=== PATIENT | male | born 1935 | race Caucasian/White ===

== ENCOUNTER 2019-12-23 09:03 | Inpatient (IN) ==
[2019-12-23] MEDS ORDERED: NITROGLYCERIN 0.4 MG TAB.SUBL SL PRN ×2 (09:23→12:15)
[2019-12-23] MEDS ORDERED: DILTIAZEM 25 MG/5 ML VIAL IV ONE (09:23)
--- NOTE | 2019-12-23 09:28 | Emergency Department Note ---
Chest Pain HPI General Chief Complaint: Chest Pain Stated Complaint: chest pain/cough Time Seen by Provider: 12/23/19 09:18 Source: patient and RN notes reviewed Mode of arrival: EMS Limitations: no limitations History of Present Illness HPI Narrative: Narrative: This patient has with mild cough and shortness of breath since Tuesday and this morning at 730 developed chest pain and rapid heartbeat. He is in rapid atrial fib and has never been in atrial flutter before that he is aware of. He does have a history of coronary disease and has had bypass grafting in the past. Chest pain is anterior and described as a heaviness. Cough is nonproductive. complaint: chest pain Onset (ago): hour(s) Duration: constant Onset: during rest Pain Location: substernal Severity: moderate Quality: tightness Pain Radiation: none Improves with: nothing Worsens with: nothing Associated symptoms: Reports palpitations Treatments prior to arrival chest pain: aspirin Related Data Home Medications Medication Instructions Recorded Confirmed aspirin [Lite Coat Aspirin] 325 mg PO DAILY 03/05/15 12/05/19 atorvastatin 20 mg PO HS 03/05/15 12/05/19 lisinopril 5 mg PO DAILY 03/05/15 12/05/19 metformin 1,000 mg PO BIDCC 03/05/15 12/05/19 metoprolol tartrate 50 mg PO BID 03/05/15 12/05/19 insulin aspart U-100 100 unit/mL See Rx Instructions SUB-Q .COMPLEX 06/28/19 12/05/19 subcutaneous cartridge simvastatin 10 mg tablet See Rx Instructions PO .COMPLEX 06/28/19 12/05/19 insulin glargine [Lantus Solostar 8 unit SUBCUT QAM 12/23/19 12/23/19 U-100 Insulin] Allergies Allergy/AdvReac Type Severity Reaction Status Date / Time No Known Drug Allergies Allergy Verified 12/23/19 12:01 Review of Systems ROS ROS Narrative: Narrative: All systems ED: reviewed and negative except as stated. PFSH Narrative Patient History Narrative: Narrative: Medical/Surgical/Family History All Active Problems (Updated 12/23/19 @ 12:12 by Lev Harvey MD) Atrial fibrillation with rapid ventricular response (Acute) COVID-19 (Acute) Radiculopathy, lumbosacral region (Chronic) Lumbar spinal stenosis (Chronic) Radiculopathy, lumbar region (Chronic) Spinal stenosis, lumbar region with neurogenic claudication (Chronic) Low back pain (Chronic) Hip fracture, right (Acute) Heart disease (Acute) Diabetes (Acute) Closed right hip fracture (Acute) Medical History (Updated 12/23/19 @ 12:12 by Lev Harvey MD) Closed right hip fracture (Acute) Diabetes (Acute) Heart disease (Acute) Hip fracture, right (Acute) Afebrile OOB with assist. Dressing dry. HCT 28.9 Continue PT Low back pain (Chronic) Lumbar spinal stenosis (Chronic) Radiculopathy, lumbar region (Chronic) Radiculopathy, lumbosacral region (Chronic) Spinal stenosis, lumbar region with neurogenic claudication (Chronic) Surgical History (Updated 06/28/19 @ 12:51 by Marilu Le) History of surgery (Chronic) LESI #2 L4-5 w/o sed 01/18/2019 LESI #1 L4-5 w/o sed 11/09/18 MILD L4/5 w/ sed 09/14/2018 LESI #2 L5-S1 w/o sed 05/18/2018 LESI #1 Rt L5-S1 w/o sed 02/23/2018 LESI #2 L4-5 w/o sed 07/25/17 LESI #1 L5-S1 w/o sed 04/18/17 LESI #2 L5-S1 w/o sed 12/29/2016 LESI #1 L5-S1 w/o sed 10/12/2016 Family History (Updated 11/09/19 @ 09:21 by Amada Jimenez) Other No pertinent family history Social History Smoking Status: Former smoker Exam Narrative Narrative: Narrative: General Limitations: no limitations Head Head: Present atraumatic, normocephalic and normal inspection Eye Eye: Present normal appearance and EOMI; Absent scleral icterus and conjunctival injection ENT ENT: Present normal exam, normal oropharynx and mucous membranes moist Neck Neck: Present normal inspection and full ROM Chest Chest: Present normal inspection and symmetric chest wall rise; Absent tendernes s Respiratory Respiratory: Present normal lung sounds bilaterally; Absent respiratory distress, rales/crackles and wheezes Cardiovascular Cardiovascular: Present tachycardia, irregular rhythm and normal heart sounds Adbominal Abdominal: Present soft; Absent distention and tenderness Extremities Extremities: Present normal inspection and full ROM; Absent pedal edema and pretibial edema Neurological Neurological: Present alert Psychiatric Psychiatric: Present normal affect Skin Skin: Present warm (WNL) and dry; Absent diaphoresis Course Vital Signs Vital signs: Vital Signs Pulse Rate 166 H 12/23/19 09:07 Respiratory Rate 16 12/23/19 09:07 Blood Pressure 150/122 12/23/19 09:07 Temperature 96.8 F L 12/23/19 09:15 Pulse Rate 103 H 12/23/19 11:44 Respiratory Rate 29 H 12/23/19 11:44 Blood Pressure 105/68 12/23/19 11:41 Pulse Oximetry (%) 97 12/23/19 11:44 MDM MDM Narrative Medical decision making narrative: Narrative: Patient will be admitted to the hospital by Dr. Childress. We did start diltiazem and got rate under control but around. Lab Data Lab results narrative: Lab work was unremarkable except that he was Covid positive. Result diagrams: 12/23/19 09:27 12/23/19 09:27 Labs: Lab Results 12/23/19 12/23/19 12/23/19 Range/Units 09:27 09:27 09:27 WBC 9.6 (4.5-11.0) K/mcL RBC 4.35 L (4.50-5.90) M/mcL Hgb 13.5 (13.5-16.5) g/dL Hct 40.2 L (41.0-55.0) % MCV 92.4 (80.0-100.0) fL MCH 31.0 (26.0-34.0) pg MCHC 33.6 (31.0-36.0) g/dL RDW 11.7 (11.5-14.5) % Plt Count 189 (140-440) K/mcL MPV 9.4 (7.4-10.4) fL Neut % (Auto) 64.0 (38.0-78.0) % Lymph % (Auto) 24.1 (15.0-49.0) % [place] % (Auto) 11.5 (1.0-12.0) % Eos % (Auto) 0.1 (0.0-7.0) % Baso % (Auto) 0.3 (0.0-2.0) % Lymph # (Auto) 2.31 (1.50-4.80) K/mcL [place] # (Auto) 1.10 H (0.10-0.90) K/mcL Eos # (Auto) 0.01 (0.00-0.70) K/mcL Baso # (Auto) 0.03 (0.00-0.20) K/mcL Absolute Neutrophils 6.13 (1.80-8.00) K/mcL Sodium 127 L (133-145) mmol/L Potassium 3.9 (3.3-5.1) mmol/L Chloride 92 L (96-108) mmol/L Carbon Dioxide 18 L (22-30) mmol/L Anion Gap 17.0 H (8.0-16.0) BUN 18 (8-23) mg/dL Creatinine 1.2 (0.7-1.2) mg/dL GFR Calculation 56 Glucose 280 H (70-105) mg/dL Calcium 10.1 (8.6-10.4) mg/dL Total Bilirubin 1.2 H (0.1-1.0) mg/dL AST 19 (<40) U/L ALT 12 (<40) U/L Alkaline Phosphatase 83 (39-117) U/L Troponin T < 0.01 (<0.03) ng/mL NT-Pro-B Natriuret Pep 459.8 H (<450.0) pg/mL Total Protein 8.0 (5.9-8.4) gm/dL Albumin 4.2 (3.2-5.2) gm/dL Globulin 3.8 H (2.2-3.7) gm/dL Albumin/Globulin Ratio 1.1 (1.0-2.3) Urine Color Urine Appearance (Clear) Urine pH (5.0-9.0) Ur Specific [place] (1.000-1.035) Urine Protein (Negative) mg/dL Urine Glucose (UA) (Negative) mg/dL Urine Ketones (Negative) mg/dL Urine Occult Blood (Negative) mg/dL Urine Nitrate (Negative) Urine Bilirubin (Negative) mg/dL Urine Urobilinogen mg/dL Ur Leukocyte Esterase (Negative) /ug Urine RBC (0-1) /hpf Urine WBC (0-4) /hpf Ur Squamous Epith Cells (0-4) /hpf Ur Transition Epith Cell (0-2) /hpf Urine Bacteria (0) /hpf Hyaline Casts (0-2) /lph Urine Mucus (None) /hpf Ur Culture Indicated? SARS-CoV-2 (PCR) (Negative) 12/23/19 12/23/19 Range/Units 09:51 11:03 WBC (4.5-11.0) K/mcL RBC (4.50-5.90) M/mcL Hgb (13.5-16.5) g/dL Hct (41.0-55.0) % MCV (80.0-100.0) fL MCH (26.0-34.0) pg MCHC (31.0-36.0) g/dL RDW (11.5-14.5) % Plt Count (140-440) K/mcL MPV (7.4-10.4) fL Neut % (Auto) (38.0-78.0) % Lymph % (Auto) (15.0-49.0) % [place] % (Auto) (1.0-12.0) % Eos % (Auto) (0.0-7.0) % Baso % (Auto) (0.0-2.0) % Lymph # (Auto) (1.50-4.80) K/mcL [place] # (Auto) (0.10-0.90) K/mcL Eos # (Auto) (0.00-0.70) K/mcL Baso # (Auto) (0.00-0.20) K/mcL Absolute Neutrophils (1.80-8.00) K/mcL Sodium (133-145) mmol/L Potassium (3.3-5.1) mmol/L Chloride (96-108) mmol/L Carbon Dioxide (22-30) mmol/L Anion Gap (8.0-16.0) BUN (8-23) mg/dL Creatinine (0.7-1.2) mg/dL GFR Calculation Glucose (70-105) mg/dL Calcium (8.6-10.4) mg/dL Total Bilirubin (0.1-1.0) mg/dL AST (<40) U/L ALT (<40) U/L Alkaline Phosphatase (39-117) U/L Troponin T (<0.03) ng/mL NT-Pro-B Natriuret Pep (<450.0) pg/mL Total Protein (5.9-8.4) gm/dL Albumin (3.2-5.2) gm/dL Globulin (2.2-3.7) gm/dL Albumin/Globulin Ratio (1.0-2.3) Urine Color Yellow Urine Appearance Clear (Clear) Urine pH 5.0 (5.0-9.0) Ur Specific [place] 1.014 (1.000-1.035) Urine Protein 30 A (Negative) mg/dL Urine Glucose (UA) 50 A (Negative) mg/dL Urine Ketones Negative (Negative) mg/dL Urine Occult Blood Negative (Negative) mg/dL Urine Nitrate Negative (Negative) Urine Bilirubin Negative (Negative) mg/dL Urine Urobilinogen 2.0 A mg/dL Ur Leukocyte Esterase Negative (Negative) /ug Urine RBC 2 H (0-1) /hpf Urine WBC 3 (0-4) /hpf Ur Squamous Epith Cells 1 (0-4) /hpf Ur Transition Epith Cell < 1 (0-2) /hpf Urine Bacteria None (0) /hpf Hyaline Casts 178 H (0-2) /lph Urine Mucus Many A (None) /hpf Ur Culture Indicated? No SARS-CoV-2 (PCR) Positive A (Negative) Radiology Data Radiology results reviewed: Yes I reviewed the patient's radiology results. Radiology results narrative: Chest x-ray showed COPD Discharge Plan Patient/Caregiver Discharge Instructions Pt seen by MUSCULOSKELETAL PHYSIOTHERAPIST/PA only: No Clinical Impression: Atrial fibrillation with rapid ventricular response, COVID-19 Patient Disposition: Xfer As Inpt ([facility]) Follow up with: Ghada Ivory MD [Primary Care Provider] - Prescriptions: No Action simvastatin 10 mg tablet PO DAILY RF: 0 insulin aspart U-100 100 unit/mL cartridge See Rx Instructions SUB-Q .COMPLEX RF: 0 metformin 500 MG tablet 1,000 mg PO BIDCC RF: 0 atorvastatin 20 MG tablet 20 mg PO HS RF: 0 aspirin [Lite Coat Aspirin] 325 MG tablet 325 mg PO DAILY RF: 0 metoprolol tartrate 50 MG tablet 25 mg PO BID RF: 0 lisinopril 5 MG tablet 5 mg PO DAILY RF: 0 Lantus Solostar U-100 Insulin 100 unit/mL (3 mL) insulin pen 8 unit SUBCUT QAM RF: 0
[2019-12-23] MEDS ORDERED: DILTIAZEM 125 MG in DEXTROSE 5% IN WATER 100 ML IV SCH (09:30)
--- NOTE | 2019-12-23 10:00 | XRay Report ---
HISTORY: Shortness of breath, chest pain and cough FINDINGS: Patient has COPD. The lungs are hyperinflated. There are prominent increased interstitial lung markings. This COPD has become worse since 07/31/07. The prominent lung markings are probably fibrosis. However, superimposed active interstitial inflammatory process is possible. There is no consolidating infiltrate. Prominent symmetric nipple shadows are present in both lung bases. The heart size is normal and there has been a prior sternotomy and coronary bypass surgery. IMPRESSION: COPD Interpreted and Authenticated by: Deny Ford 12/23/19
[2019-12-23 10:17] LABS: Basophils # (Auto) 0.03 K/mcL (0.00-0.20); Basophils % (Auto) 0.3 % (0.0-2.0); Eosinophils # (Auto) 0.01 K/mcL (0.00-0.70); Eosinophils % (Auto) 0.1 % (0.0-7.0); Hematocrit 40.2 % (41.0-55.0); Hemoglobin 13.5 g/dL (13.5-16.5); Lymphocytes # (Auto) 2.31 K/mcL (1.50-4.80); Lymphocytes % (Auto) 24.1 % (15.0-49.0); Mean Cell Volume 92.4 fL (80.0-100.0); Mean Corpuscular HGB Conc 33.6 g/dL (31.0-36.0); Mean Platelet Volume 9.4 fL (7.4-10.4); Monocytes % (Auto) 11.5 % (1.0-12.0); Platelet Count 189 K/mcL (140-440); RBC 4.35 M/mcL (4.50-5.90); Red Cell Distribution Width 11.7 % (11.5-14.5); WBC 9.6 K/mcL (4.5-11.0)
[2019-12-23] MEDS ORDERED: LACTATED RINGERS 1,000 ML IV ONE (10:38)
[2019-12-23 10:43] LABS: ALT/SGPT 12 U/L (<40); AST/SGOT 19 U/L (<40); Albumin 4.2 gm/dL (3.2-5.2); Albumin/Globulin Ratio 1.1 (1.0-2.3); Alkaline Phosphatase 83 U/L (39-117); Bilirubin,Total 1.2 mg/dL (0.1-1.0); Blood Urea Nitrogen 18 mg/dL (8-23); Calcium 10.1 mg/dL (8.6-10.4); Carbon Dioxide 18 mmol/L (22-30); Chloride 92 mmol/L (96-108); Globulin 3.8 gm/dL (2.2-3.7); Glomerular Filtration Rate 56; Glucose 280 mg/dL (70-105)
[2019-12-23 10:44] LABS: proBNP 459.8 pg/mL (<450.0)
--- NOTE | 2019-12-23 11:18 | Internal Med History&Physical ---
HPI History of Present Illness Patient information: Note initiated : 12/23/19 at 11:13 am Service Date, if different from initiated Date: [] Patient: Chemo Shields 84 y/o M admitted on for chest pain/cough. Chief Complaint: [] History of present illness: Mr. Shields is a 84 year old M pResents to the ED with palpitations and chest discomfort. Patient is Tuesday*developing a cough with mild shortness of breath and this morning had palpitation described as rapid and irregular and had some chest discomfort with it. The ED was found to have A. fib RVR and given diltiazem bolus with improvement. Chest discomfort resolved. Troponin unremarkable. Covid test was positive. On room air doing well. Found to be mildly hyponatremic. Some mild volume depletion likely. Review of Systems: Pertinent positives as above. Denies headache/fever/chills/nausea/vomiting/ abdominal pain/diarrhea. Many 10 point review of system reviewed negative PFSH PFSH All Active Problems (Updated 06/28/19 @ 12:51 by Marilu Le) Radiculopathy, lumbosacral region (Chronic) Lumbar spinal stenosis (Chronic) Radiculopathy, lumbar region (Chronic) Spinal stenosis, lumbar region with neurogenic claudication (Chronic) Low back pain (Chronic) Hip fracture, right (Acute) Heart disease (Acute) Diabetes (Acute) Closed right hip fracture (Acute) Medical History (Updated 06/28/19 @ 12:51 by Marilu Le) Closed right hip fracture (Acute) Diabetes (Acute) Heart disease (Acute) Hip fracture, right (Acute) Afebrile OOB with assist. Dressing dry. HCT 28.9 Continue PT Low back pain (Chronic) Lumbar spinal stenosis (Chronic) Radiculopathy, lumbar region (Chronic) Radiculopathy, lumbosacral region (Chronic) Spinal stenosis, lumbar region with neurogenic claudication (Chronic) Surgical History (Updated 06/28/19 @ 12:51 by Marilu Le) History of surgery (Chronic) LESI #2 L4-5 w/o sed 01/18/2019 LESI #1 L4-5 w/o sed 11/09/18 MILD L4/5 w/ sed 09/14/2018 LESI #2 L5-S1 w/o sed 05/18/2018 LESI #1 Rt L5-S1 w/o sed 02/23/2018 LESI #2 L4-5 w/o sed 07/25/17 LESI #1 L5-S1 w/o sed 04/18/17 LESI #2 L5-S1 w/o sed 12/29/2016 LESI #1 L5-S1 w/o sed 10/12/2016 Family History (Updated 11/09/19 @ 09:21 by Amada Jimenez) Other No pertinent family history Social History (Updated 12/23/19 @ 11:15 by Anuj Childress DO) smoking status: Former smoker additional history: Family: Mother was healthy Father had heart failure Social history: Patient quit smoking long time ago denies alcohol use lives with a roommate MEDS/ALLERGIES Home Medications and Allergies Home Medications Medication Instructions Recorded Confirmed Type aspirin [Lite Coat Aspirin] 325 mg PO DAILY 03/05/15 12/05/19 History atorvastatin 20 mg PO HS 03/05/15 12/05/19 History lisinopril 5 mg PO DAILY 03/05/15 12/05/19 History metformin 1,000 mg PO BIDCC 03/05/15 12/05/19 History metoprolol tartrate 50 mg PO BID 03/05/15 12/05/19 History insulin aspart U-100 100 unit/mL See Rx Instructions SUB-Q .COMPLEX 06/28/19 12/05/19 History subcutaneous cartridge simvastatin 10 mg tablet See Rx Instructions PO .COMPLEX 06/28/19 12/05/19 History Allergies Allergy/AdvReac Type Severity Reaction Status Date / Time No Known Drug Allergies Allergy Verified 12/05/19 15:46 EXAM Constitutional Vitals: Temp Pulse Resp BP Pulse Ox 96.8 F L 101 H 24 H 87/54 96 12/23/19 09:15 12/23/19 10:37 12/23/19 10:37 12/23/19 10:36 12/23/19 10:37 Exam: General: Alert, Awake, No acute Distress Eyes/N/T: EOMI, PERRL, Head/Neck: neck supple, normocephalic atraumatic CV: irreg irreg, No murmurs, normal s1/s2 Pulm: Clear b/l, no wheezing/rhonchi/rales Abd: soft, nontender, +BS x4 Ext: no clubbing/cyanosis/edema Neuro: Alert, no focal deficits, moves all extremities, CN 2-12 grossly intact, symmetrical strength b/l upper/lower, sensations intact b/l upper/lower Skin: warm/dry DATA Data Completed and Pending Labs: Labs from last 24 hours 12/23/19 12/23/19 12/23/19 11:03 09:51 09:27 WBC RBC Hgb Hct MCV MCH MCHC RDW Plt Count MPV Neut % (Auto) Lymph % (Auto) [place] % (Auto) Eos % (Auto) Baso % (Auto) Lymph # (Auto) [place] # (Auto) Eos # (Auto) Baso # (Auto) Absolute Neutrophils Sodium Potassium Chloride Carbon Dioxide Anion Gap BUN Creatinine GFR Calculation Glucose Calcium Total Bilirubin AST ALT Alkaline Phosphatase Troponin T < 0.01 NT-Pro-B Natriuret Pep Total Protein Albumin Globulin Albumin/Globulin Ratio Urine Color Pending Urine Appearance Pending Urine pH Pending Ur Specific [place] Pending Urine Protein Pending Urine Glucose (UA) Pending Urine Ketones Pending Urine Occult Blood Pending Urine Nitrate Pending Urine Bilirubin Pending Urine Urobilinogen Pending Ur Leukocyte Esterase Pending SARS-CoV-2 (PCR) Positive A 12/23/19 12/23/19 09:27 09:27 WBC 9.6 RBC 4.35 L Hgb 13.5 Hct 40.2 L MCV 92.4 MCH 31.0 MCHC 33.6 RDW 11.7 Plt Count 189 MPV 9.4 Neut % (Auto) 64.0 Lymph % (Auto) 24.1 [place] % (Auto) 11.5 Eos % (Auto) 0.1 Baso % (Auto) 0.3 Lymph # (Auto) 2.31 [place] # (Auto) 1.10 H Eos # (Auto) 0.01 Baso # (Auto) 0.03 Absolute Neutrophils 6.13 Sodium 127 L Potassium 3.9 Chloride 92 L Carbon Dioxide 18 L Anion Gap 17.0 H BUN 18 Creatinine 1.2 GFR Calculation 56 Glucose 280 H Calcium 10.1 Total Bilirubin 1.2 H AST 19 ALT 12 Alkaline Phosphatase 83 Troponin T NT-Pro-B Natriuret Pep 459.8 H Total Protein 8.0 Albumin 4.2 Globulin 3.8 H Albumin/Globulin Ratio 1.1 Urine Color Urine Appearance Urine pH Ur Specific [place] Urine Protein Urine Glucose (UA) Urine Ketones Urine Occult Blood Urine Nitrate Urine Bilirubin Urine Urobilinogen Ur Leukocyte Esterase SARS-CoV-2 (PCR) A/P Narrative A/P Narrative: A: *A. fib RVR: -trop neg *Covid positive: -no O2 needs at this time -cxr unremarkable *Hyponatremia: *volume depletion: *CAD with history of CABG: *HTN/HLD: *DM: P: -echo, tsh/mg -cont BB -discuss anticoagulation -f/u chemistry/sodium after volume repletion -cont ASA/Statin -basal and SSI -IS, monitor O2 -ppx: Lovenox Code Time 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
[2019-12-23 11:53] LABS: Appearance,Urine CLEAR (Clear); Bilirubin,Urine Negative (Negative); Color,Urine YELLOW; Culture Indicated,Urine No; Glucose,Urine (UA) 50 mg/dL (Negative); Ketones,Urine Negative (Negative); Leukocyte Esterase,Urine Negative /ug (Negative); Mucus,Urine MANY /hpf; Nitrate,Urine Negative (Negative); Protein,Urine 30 mg/dL (Negative); Specific Gravity,Urine 1.014 (1.000-1.035); Urine Blood Negative (Negative); Urine Hyaline Cast 178 /lph (0-2); Urine RBC 2 /hpf (0-1); Urine Squamous Epithelial Cell 1 /hpf (0-4); Urine Transitional Epi Cells < 1 /hpf (0-2); Urine WBC 3 /hpf (0-4)
[2019-12-23] MEDS ORDERED: IPRATROPIUM/ALBUTEROL 3 ML AMPUL.NEB NEB PRN (12:15)
[2019-12-23] MEDS ORDERED: SENNOSIDES 1 TABLET PO PRN (12:15)
[2019-12-23] MEDS ORDERED: POTASSIUM CHLORIDE 20 MEQ TABLET PO PRN ×2 (12:15)
[2019-12-23] MEDS ORDERED: ONDANSETRON 4 MG/2 ML VIAL IV PRN (12:15)
[2019-12-23] MEDS ORDERED: DEXTROSE 50% 50 ML VIAL IV PRN (12:15)
[2019-12-23] MEDS ORDERED: DEXTROSE 31 GM ORAL.SUSP PO PRN (12:15)
[2019-12-23] MEDS ORDERED: POTASSIUM CHLORIDE 40 MEQ in DEXTROSE 5% IN WATER 500 ML IV PRN (12:15)
[2019-12-23] MEDS ORDERED: MAGNESIUM SULFATE 2 GM/50 ML BAG IV PRN (12:15)
[2019-12-23] MEDS ORDERED: METOPROLOL TARTRATE 5 MG/5 ML VIAL IV PRN (12:15)
[2019-12-23 13:28] LABS: Thyroid Stimulating Hormone 1.31 uIU/mL (0.27-5.01)
[2019-12-23] MEDS: 0.9 % SODIUM CHLORIDE 10 ML SYRINGE IV SCH ×2 (14:29→21:15)
[2019-12-23] MEDS: INSULIN LISPRO 1 UNIT/0.01 ML UNIT SQ SCH ×3 (14:29→21:14)
[2019-12-23] MEDS: ACETAMINOPHEN 325 MG TABLET PO PRN (15:18)
[2019-12-23 15:45] LABS: Hemoglobin A1C 8.4 % Hgb (4.0-6.0)
[2019-12-23] MEDS: DOCUSATE SODIUM 100 MG CAPSULE PO SCH ×2 (20:38→21:14)
[2019-12-23] MEDS: METOPROLOL TARTRATE 50 MG TABLET PO SCH (20:38)
[2019-12-24] MEDS: ACETAMINOPHEN 325 MG TABLET PO PRN ×2 (00:48→21:31)
[2019-12-24] MEDS: 0.9 % SODIUM CHLORIDE 10 ML SYRINGE IV SCH ×3 (05:40→21:02)
[2019-12-24 05:57] LABS: Basophils # (Auto) 0.01 K/mcL (0.00-0.20); Basophils % (Auto) 0.1 % (0.0-2.0); Eosinophils # (Auto) 0.01 K/mcL (0.00-0.70); Eosinophils % (Auto) 0.1 % (0.0-7.0); Hematocrit 31.6 % (41.0-55.0); Hemoglobin 10.8 g/dL (13.5-16.5); Lymphocytes # (Auto) 1.39 K/mcL (1.50-4.80); Lymphocytes % (Auto) 20.8 % (15.0-49.0); Mean Cell Volume 89.5 fL (80.0-100.0); Mean Corpuscular HGB Conc 34.2 g/dL (31.0-36.0); Mean Platelet Volume 9.2 fL (7.4-10.4); Monocytes # (Auto) 0.68 K/mcL (0.10-0.90); Monocytes % (Auto) 10.2 % (1.0-12.0); Neutrophils % (Auto) 68.8 % (38.0-78.0); Platelet Count 186 K/mcL (140-440); RBC 3.53 M/mcL (4.50-5.90); Red Cell Distribution Width 11.8 % (11.5-14.5); WBC 6.7 K/mcL (4.5-11.0)
[2019-12-24 06:23] LABS: ALT/SGPT 9 U/L (<40); AST/SGOT 18 U/L (<40); Albumin 3.4 gm/dL (3.2-5.2); Alkaline Phosphatase 70 U/L (39-117); Bilirubin,Total 1.1 mg/dL (0.1-1.0); Blood Urea Nitrogen 24 mg/dL (8-23); Calcium 9.2 mg/dL (8.6-10.4); Carbon Dioxide 22 mmol/L (22-30); Chloride 94 mmol/L (96-108); Globulin 3.4 gm/dL (2.2-3.7); Glomerular Filtration Rate 70; Glucose 161 mg/dL (70-105)
[2019-12-24] MEDS ORDERED: MAGNESIUM SULFATE 2 GM/50 ML BAG IV ONE (08:01)
[2019-12-24] MEDS: DOCUSATE SODIUM 100 MG CAPSULE PO SCH ×2 (08:05→20:52)
[2019-12-24] MEDS: ATORVASTATIN 40 MG TABLET PO SCH (08:09)
[2019-12-24] MEDS: METOPROLOL TARTRATE 50 MG TABLET PO SCH ×2 (08:09→21:01)
[2019-12-24] MEDS: ASPIRIN 81 MG TAB.CHEW PO SCH (08:09)
[2019-12-24] MEDS: INSULIN LISPRO 1 UNIT/0.01 ML UNIT SQ SCH ×4 (08:11→21:01)
[2019-12-24] MEDS ORDERED: ENOXAPARIN 40 MG/0.4 ML SYRINGE SQ SCH (09:00)
[2019-12-24] MEDS ORDERED: REMDESIVIR 200 MG in 0.9 % SODIUM CHLORIDE 250 ML IV ONE (13:15)
--- NOTE | 2019-12-24 15:47 | Internal Med Progress Note ---
SUBJECTIVE Subjective Patient information: Note initiated : 12/24/19 at 3:42 pm Service Date, if different from initiated Date: [] Patient: Chemo Shields a 84 y/o M admitted on 12/23/19 for chest pain/cough. Chief Complaint: [] History of present illness: Mr. Shields is a 84 year old M pResents to the ED with palpitations and chest discomfort. Patient is Tuesday*developing a cough with mild shortness of breath and this morning had palpitation described as rapid and irregular and had some chest discomfort with it. The ED was found to have A. fib RVR and given diltiazem bolus with improvement. Chest discomfort resolved. Troponin unremarkable. Covid test was positive. On room air doing well. Found to be mildly hyponatremic. Some mild volume depletion likely. 12/23 Pt feels fine and does not have new complaints. NO overnight events. He is on 1L oxygen. But I would like to start remdesivir for him now considering his age and the fact that the earlier we start remdesivir the better. He has newly onset a fib. I would like to start him on anticoagulation with Eliquis. Review of Systems: Pertinent positives as above. Denies headache/fever/chills/nausea/vomiting/ abdominal pain/diarrhea. Many 10 point review of system reviewed negative Constitutional Vitals: Vital Signs Temp Pulse Resp BP Pulse Ox 100.0 F H 81 29 H 144/64 95 12/24/19 13:00 12/24/19 14:00 12/24/19 14:00 12/24/19 14:00 12/24/19 14:00 Period Temp Pulse Resp BP Sys/Aranda Pulse Ox Last 24 Hr 98.6 F-101.4 F 57-98 19-35 99-166/49-99 92-99 Intake and Output 12/24/19 12/24/19 12/24/19 05:59 13:59 21:59 Intake Total 240 1600 Output Total 350 525 Balance -110 1075 Weight 73.737 kg Patient Weight 12/25/19 05:59 Weight 73.737 kg Intake & Output: Intake & Output 12/24/19 12/24/19 12/24/19 05:59 13:59 21:59 Intake Total 240 1600 Output Total 350 525 Balance -110 1075 Weight 73.737 kg Intake: IV 50 Oral 240 1550 Output: Void Amount 350 525 Other: Meal Breakfast Percent of Meal Consumed 25% Urine Color Dark Yellow Additional findings Additional findings: General: Alert, Awake, No acute Distress Eyes/N/T: EOMI, PERRL, Head/Neck: neck supple, normocephalic atraumatic CV: irreg irreg, No murmurs, normal s1/s2 Pulm: diminished BS b/l, no wheezing/rhonchi/rales Abd: soft, nontender, +BS x4 Ext: no clubbing/cyanosis/edema Neuro: Alert, no focal deficits, moves all extremities, CN 2-12 grossly intact, symmetrical strength b/l upper/lower, sensations intact b/l upper/lower Skin: warm/dry OBJ DATA Labs CBC & Chem 7: 12/24/19 04:11 12/24/19 04:11 Labs: Abnormal Lab Results 12/24/19 12/24/19 12/23/19 04:11 04:11 11:03 RBC 3.53 L Hgb 10.8 L Hct 31.6 L Lymph # (Auto) 1.39 L [place] # (Auto) Sodium 129 L Chloride 94 L Carbon Dioxide Anion Gap BUN 24 H Glucose 161 H Hemoglobin A1c Magnesium 1.5 L Total Bilirubin 1.1 H NT-Pro-B Natriuret Pep Globulin Urine Protein 30 A Urine Glucose (UA) 50 A Urine Urobilinogen 2.0 A Urine RBC 2 H Hyaline Casts 178 H Urine Mucus Many A SARS-CoV-2 (PCR) 12/23/19 12/23/19 12/23/19 09:51 09:27 09:27 RBC Hgb Hct Lymph # (Auto) [place] # (Auto) Sodium 127 L Chloride 92 L Carbon Dioxide 18 L Anion Gap 17.0 H BUN Glucose 280 H Hemoglobin A1c 8.4 H Magnesium Total Bilirubin 1.2 H NT-Pro-B Natriuret Pep 459.8 H Globulin 3.8 H Urine Protein Urine Glucose (UA) Urine Urobilinogen Urine RBC Hyaline Casts Urine Mucus SARS-CoV-2 (PCR) Positive A 12/23/19 09:27 RBC 4.35 L Hgb Hct 40.2 L Lymph # (Auto) [place] # (Auto) 1.10 H Sodium Chloride Carbon Dioxide Anion Gap BUN Glucose Hemoglobin A1c Magnesium Total Bilirubin NT-Pro-B Natriuret Pep Globulin Urine Protein Urine Glucose (UA) Urine Urobilinogen Urine RBC Hyaline Casts Urine Mucus SARS-CoV-2 (PCR) Meds: Medications Acetaminophen (Tylenol) 650 mg PO Q6HP PRN PRN Reason: PAIN/FEVER > 101 Last Admin: 12/24/19 00:48 Dose: 650 mg Documented by: Albuterol/Ipratropium (Duoneb) 3 ml NEB Q4HP PRN PRN Reason: Shortness Of Breath Apixaban (Eliquis) 10 mg PO BID [facility] Aspirin (Aspirin) 81 mg PO DAILY [facility] Last Admin: 12/24/19 08:09 Dose: 81 mg Documented by: Atorvastatin Calcium (Lipitor) 40 mg PO DAILY [facility] Last Admin: 12/24/19 08:09 Dose: 40 mg Documented by: Dextrose (Dextrose 50%) 0 ml IV UD PRN PRN Reason: Hypoglycemia Diagnostic Test (Pha) (Accu-Chek) 1 each FS ACHS [facility] Last Admin: 12/24/19 11:48 Dose: 1 each Documented by: Docusate Sodium (Colace) 100 mg PO BID [facility] Last Admin: 12/24/19 08:05 Dose: Not Given Documented by: Glucose (Insta-Glucose) 15 gm PO PRN PRN PRN Reason: Hypoglycemia Potassium Chloride 40 meq/ (Dextrose) 520 mls @ 130 mls/hr IV UD PRN PRN Reason: Potassium < 3 Magnesium Sulfate (Magnesium Sulfate) 2 gm in 50 mls @ 50 mls/hr IV UD PRN PRN Reason: Magnesium </= 1.6 Last Infusion: 12/24/19 08:05 Dose: Infused Documented by: REMDESIVIR 100 mg/ Sodium (Chloride) 250 mls @ 500 mls/hr IV DAILY [facility] Stop: 12/28/19 09:29 Insulin Human Lispro (Humalog) 0 unit SQ ACHS [facility]; Protocol Last Admin: 12/24/19 11:47 Dose: 2 units Documented by: Lisinopril (Zestril) 5 mg PO DAILY [facility] Metoprolol Tartrate (Lopressor) 5 mg IV Q2HP PRN PRN Reason: Tachyarrhythmias HR>110 Last Admin: 12/23/19 14:27 Dose: 5 mg Documented by: Metoprolol Tartrate (Lopressor) 50 mg PO BID [facility] Last Admin: 12/24/19 08:09 Dose: 50 mg Documented by: Nitroglycerin (Nitrostat) 0.4 mg SL Q5M PRN PRN Reason: Chest Pain Non-Formulary Medication (Insulin Glargine [Lantus Solostar U-100 Insulin]) 8 unit SUB-Q QAM [facility] Ondansetron HCl (Zofran) 4 mg IV Q4HP PRN PRN Reason: Nausea And Vomiting Potassium Chloride (Kdur) 40 meq PO UD PRN PRN Reason: Potssium is 3-3.5 Potassium Chloride (Kdur) 40 meq PO UD PRN PRN Reason: Potassium < 3 Senna (Senokot) 2 tab PO DAILYP PRN PRN Reason: Constipation Sodium Chloride (Saline Flush) 10 ml IV Q8 [facility] Last Admin: 12/24/19 13:45 Dose: 10 ml Documented by: A/P Narrative A/P Narrative: 1. Acute hypoxic respiratory failure pulse ox oxygen therapy to keep sat > 92% 2. Pneumonia, covid 19 Clinical pneumonia/copd Remdesivir 5 day course Dexamethasone 6mg po x 10 days Eliquis 5mg bid Aspirin 81mg daily Vitam D, thiamine 3. Covid positive 4. A. fib RVR: -trop neg -Continue metoprolol 50mg bid -metorpolol 5mg iv prn -Eliquis 5mg bid 5. Hyponatremia: 6. volume depletion: 7. CAD with history of CAB. HTN/HLD: 9. DM: 10. Electrolytes derangement P: -echo, tsh/mg -cont BB -discuss anticoagulation -f/u chemistry/sodium after volume repletion -cont ASA/Statin -basal and SSI -IS, monitor O2 -supplement of electrolytes, repeat them in am -ppx: Eliquis Time 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
--- NOTE | 2019-12-24 16:25 | XRay Report ---
CLINICAL INFORMATION: PNA? COMPARISON: 12/23/2019 FINDINGS: Sternotomy noted. Heart size, mediastinum and pulmonary vessels are normal. COPD changes appreciated no cecilia infiltrates or effusions IMPRESSION: No acute disease Interpreted and Authenticated by: Rajeev Alvarado 12/24/19
[2019-12-24] MEDS: APIXABAN 5 MG TABLET PO SCH (21:02)
[2019-12-25] MEDS: 0.9 % SODIUM CHLORIDE 10 ML SYRINGE IV SCH ×3 (05:35→21:45)
[2019-12-25 07:00] LABS: Basophils # (Auto) 0.02 K/mcL (0.00-0.20); Basophils % (Auto) 0.3 % (0.0-2.0); Eosinophils # (Auto) 0.02 K/mcL (0.00-0.70); Eosinophils % (Auto) 0.3 % (0.0-7.0); Hematocrit 34.9 % (41.0-55.0); Hemoglobin 12.1 g/dL (13.5-16.5); Lymphocytes # (Auto) 0.91 K/mcL (1.50-4.80); Lymphocytes % (Auto) 15.2 % (15.0-49.0); Mean Cell Volume 89.3 fL (80.0-100.0); Mean Corpuscular HGB Conc 34.7 g/dL (31.0-36.0); Mean Platelet Volume 8.8 fL (7.4-10.4); Monocytes % (Auto) 11.7 % (1.0-12.0); Neutrophils % (Auto) 72.5 % (38.0-78.0); Platelet Count 206 K/mcL (140-440); RBC 3.91 M/mcL (4.50-5.90); Red Cell Distribution Width 11.7 % (11.5-14.5)
[2019-12-25] MEDS ORDERED: ALBUTEROL SULFATE 200 PUFF INHALER INH PRN ×2 (07:27→10:46)
[2019-12-25 07:46] LABS: ALT/SGPT 11 U/L (<40); AST/SGOT 23 U/L (<40); Albumin 3.7 gm/dL (3.2-5.2); Albumin/Globulin Ratio 1.2 (1.0-2.3); Alkaline Phosphatase 78 U/L (39-117); Bilirubin,Total 1.3 mg/dL (0.1-1.0); Blood Urea Nitrogen 18 mg/dL (8-23); Calcium 9.4 mg/dL (8.6-10.4); Carbon Dioxide 24 mmol/L (22-30); Chloride 92 mmol/L (96-108); Glomerular Filtration Rate 70; Glucose 179 mg/dL (70-105)
[2019-12-25 07:47] LABS: Phosphorous 2.4 mg/dL (2.5-4.5)
[2019-12-25 07:59] LABS: Ferritin 454.9 ng/mL (30.0-400.0)
[2019-12-25] MEDS: INSULIN LISPRO 1 UNIT/0.01 ML UNIT SQ SCH ×5 (08:45→21:31)
[2019-12-25] MEDS: ATORVASTATIN 40 MG TABLET PO SCH (08:45)
[2019-12-25] MEDS: METOPROLOL TARTRATE 50 MG TABLET PO SCH ×2 (08:45→21:11)
[2019-12-25] MEDS: APIXABAN 5 MG TABLET PO SCH ×2 (08:45→21:11)
[2019-12-25] MEDS: ASPIRIN 81 MG TAB.CHEW PO SCH (08:45)
[2019-12-25] MEDS ORDERED: VITAMIN D3 1,000 UNIT TABLET PO SCH (09:00)
[2019-12-25] MEDS ORDERED: DEXAMETHASONE 4 MG TABLET PO SCH (09:00)
[2019-12-25] MEDS ORDERED: LISINOPRIL 5 MG TABLET PO SCH (09:00)
[2019-12-25] MEDS ORDERED: THIAMINE 100 MG TABLET PO SCH (09:00)
[2019-12-25] MEDS ORDERED: REMDESIVIR 100 MG in 0.9 % SODIUM CHLORIDE 250 ML IV SCH (09:00)
[2019-12-25] MEDS ORDERED: INSULIN GLARGINE, HUMAN 1 UNIT/0.01 ML SQ SCH (09:00)
[2019-12-25] MEDS ORDERED: MAGNESIUM SULFATE 8.12 MEQ in DEXTROSE 5% IN WATER 50 ML IV ONE (09:20)
[2019-12-25] MEDS ORDERED: POTASSIUM PHOSPHATE 20 MEQ in DEXTROSE 5% IN WATER 250 ML IV ONE ×2 (09:20→09:22)
[2019-12-25] MEDS: DOCUSATE SODIUM 100 MG CAPSULE PO SCH ×2 (09:21→21:32)
--- NOTE | 2019-12-25 10:10 | XRay Report ---
CLINICAL INFORMATION: Hypoxia COMPARISON: 12/24/2019 FINDINGS: Heart size, mediastinum and pulmonary vessels are normal. COPD changes again noted. Vague infiltrates may be developing in the right upper and lower lungs. No effusion IMPRESSION: COPD. Possible vague developing right upper and lower lung infiltrates Interpreted and Authenticated by: Rajeev Alvarado 12/25/19
[2019-12-25] MEDS ORDERED: ACETAMINOPHEN 325 MG TABLET PO PRN (10:46)
[2019-12-25] MEDS ORDERED: POTASSIUM CHLORIDE 40 MEQ in DEXTROSE 5% IN WATER 500 ML IV PRN (10:46)
[2019-12-25] MEDS ORDERED: MAGNESIUM SULFATE 2 GM/50 ML BAG IV PRN (10:46)
[2019-12-25] MEDS ORDERED: NITROGLYCERIN 0.4 MG TAB.SUBL SL PRN (10:46)
[2019-12-25] MEDS ORDERED: METOPROLOL TARTRATE 5 MG/5 ML VIAL IV PRN (10:46)
[2019-12-25] MEDS ORDERED: ONDANSETRON 4 MG/2 ML VIAL IV PRN (10:46)
[2019-12-25] MEDS ORDERED: DEXTROSE 31 GM ORAL.SUSP PO PRN (10:46)
[2019-12-25] MEDS ORDERED: DEXTROSE 50% 50 ML VIAL IV PRN (10:46)
[2019-12-25] MEDS ORDERED: POTASSIUM CHLORIDE 20 MEQ TABLET PO PRN ×2 (10:46)
[2019-12-25] MEDS ORDERED: IPRATROPIUM/ALBUTEROL 3 ML AMPUL.NEB NEB PRN (10:46)
--- NOTE | 2019-12-25 15:30 | Internal Med Progress Note ---
SUBJECTIVE Subjective Patient information: Note initiated : 12/25/19 at 3:20 pm Service Date, if different from initiated Date: [] Patient: Chemo Shields a 84 y/o M admitted on 12/23/19 for chest pain/cough. Chief Complaint: [] Mr. Shields is a 84 year old M pResents to the ED with palpitations and chest discomfort. Patient is Tuesday*developing a cough with mild shortness of breath and this morning had palpitation described as rapid and irregular and had some chest discomfort with it. The ED was found to have A. fib RVR and given diltiazem bolus with improvement. Chest discomfort resolved. Troponin unremarkable. Covid test was positive. On room air doing well. Found to be mildly hyponatremic. Some mild volume depletion likely. 12/23 Pt feels fine and does not have new complaints. NO overnight events. He is on 1L oxygen. But I would like to start remdesivir for him now considering his age and the fact that the earlier we start remdesivir the better. He has newly onset a fib. I would like to start him on anticoagulation with Eliquis. 12/24 Pt feels fine. Denies fever/chill or n/v. He is on RM with good saturation. Lab showed some electrolytes derangement and vitd insufficiency. Review of Systems: Pertinent positives as above. Denies headache/fever/chills/nausea/vomiting/ abdominal pain/diarrhea. Many 10 point review of system reviewed negative Constitutional Vitals: Vital Signs Temp Pulse Resp BP Pulse Ox 97.6 F 70 18 105/44 88 L 12/25/19 14:28 12/25/19 14:28 12/25/19 14:28 12/25/19 14:28 12/25/19 14:28 Period Temp Pulse Resp BP Sys/Aranda Pulse Ox Last 24 Hr 97.6 F-99.7 F 65-102 18-35 104-187/44-123 88-98 Intake and Output 12/25/19 12/25/19 12/25/19 05:59 13:59 21:59 Intake Total 750 805 395.7938 Output Total 975 202 Balance -225 -388 020.9380 Intake & Output: Intake & Output 12/25/19 12/25/19 12/25/19 05:59 13:59 21:59 Intake Total 750 841 838.2298 Output Total 975 202 Balance -225 -978 283.6758 Intake: IV 556.5455 Magnesium Sulfate 8.12 Meq In 52 Dextrose 5% in Water 50 ml @ 52 mls/hr IV ONCE ONE Rx#: [id number] Potassium Phosphate 20 Meq In 254.5455 Dextrose 5% in Water 250 ml @ 127.273 mls/hr IV ONCE ONE Rx#: [id number] Veklury 100 mg In Sodium 250 Chloride 0.9% 250 ml @ 500 mls/ hr IV DAILY [facility] Rx#:[id number] Oral 750 100 Output: Void Amount 975 200 # of times incontinent of urine 2 Other: Meal Breakfast Percent of Meal Consumed 50% Urine Appearance Clear Urine Color Pale Additional findings Additional findings: General - No acute distress Eyes - PERRLA, EOM intact ENT no rhinorrhea, no noticeable or palpable swelling, no redness or rash around throat or on face Neck supple, no JVD, no thyromegaly Respiratory: Lungs -clear, no wheezing or crackles. Cardiovascular - RRR no m/r/g, GI - Normal bowel sounds, no distended, soft. Extremeties - No edema, cyanosis or clubbing Hemo/lymphatic/immune no lymphadenopathy Neurological Alert and oriented x 3, no focal neurological deficits. Psychiatry flat affect OBJ DATA Labs CBC & Chem 7: 12/25/19 05:14 12/25/19 05:14 Labs: Abnormal Lab Results 12/25/19 12/25/19 12/25/19 05:14 05:14 05:13 RBC 3.91 L Hgb 12.1 L Hct 34.9 L Lymph # (Auto) 0.91 L [place] # (Auto) D-Dimer Sodium 127 L Chloride 92 L Carbon Dioxide Anion Gap BUN Glucose 179 H Hemoglobin A1c Phosphorus 2.4 L Magnesium Ferritin 454.9 H Total Bilirubin 1.3 H C-React Prot High Sens 143.0 H NT-Pro-B Natriuret Pep Globulin 25-OH Vitamin D Total 16.68 L Urine Protein Urine Glucose (UA) Urine Urobilinogen Urine RBC Hyaline Casts Urine Mucus SARS-CoV-2 (PCR) 12/25/19 12/24/19 12/24/19 05:13 04:11 04:11 RBC 3.53 L Hgb 10.8 L Hct 31.6 L Lymph # (Auto) 1.39 L [place] # (Auto) D-Dimer 2.58 H Sodium 129 L Chloride 94 L Carbon Dioxide Anion Gap BUN 24 H Glucose 161 H Hemoglobin A1c Phosphorus Magnesium 1.5 L Ferritin Total Bilirubin 1.1 H C-React Prot High Sens NT-Pro-B Natriuret Pep Globulin 25-OH Vitamin D Total Urine Protein Urine Glucose (UA) Urine Urobilinogen Urine RBC Hyaline Casts Urine Mucus SARS-CoV-2 (PCR) 12/23/19 12/23/19 12/23/19 11:03 09:51 09:27 RBC Hgb Hct Lymph # (Auto) [place] # (Auto) D-Dimer Sodium Chloride Carbon Dioxide Anion Gap BUN Glucose Hemoglobin A1c 8.4 H Phosphorus Magnesium Ferritin Total Bilirubin C-React Prot High Sens NT-Pro-B Natriuret Pep Globulin 25-OH Vitamin D Total Urine Protein 30 A Urine Glucose (UA) 50 A Urine Urobilinogen 2.0 A Urine RBC 2 H Hyaline Casts 178 H Urine Mucus Many A SARS-CoV-2 (PCR) Positive A 12/23/19 12/23/19 09:27 09:27 RBC 4.35 L Hgb Hct 40.2 L Lymph # (Auto) [place] # (Auto) 1.10 H D-Dimer Sodium 127 L Chloride 92 L Carbon Dioxide 18 L Anion Gap 17.0 H BUN Glucose 280 H Hemoglobin A1c Phosphorus Magnesium Ferritin Total Bilirubin 1.2 H C-React Prot High Sens NT-Pro-B Natriuret Pep 459.8 H Globulin 3.8 H 25-OH Vitamin D Total Urine Protein Urine Glucose (UA) Urine Urobilinogen Urine RBC Hyaline Casts Urine Mucus SARS-CoV-2 (PCR) Meds: Medications Acetaminophen (Tylenol) 650 mg PO Q6HP PRN PRN Reason: PAIN/FEVER > 101 Albuterol Sulfate (Ventolin) 1 puff INH Q4-6HP PRN PRN Reason: Shortness Of Breath Albuterol/Ipratropium (Duoneb) 3 ml NEB Q4HP PRN PRN Reason: Shortness Of Breath Apixaban (Eliquis) 5 mg PO BID [facility] Aspirin (Aspirin) 81 mg PO DAILY [facility] Atorvastatin Calcium (Lipitor) 40 mg PO DAILY [facility] Dexamethasone (Decadron) 6 mg PO DAILY [facility] Dextrose (Dextrose 50%) 0 ml IV UD PRN PRN Reason: Hypoglycemia Diagnostic Test (Pha) (Accu-Chek) 1 each FS ACHS [facility] Last Admin: 12/25/19 11:22 Dose: 1 each Documented by: Docusate Sodium (Colace) 100 mg PO BID [facility] Ergocalciferol (Drisdol) 50,000 unit PO WEEKLY [facility] Glucose (Insta-Glucose) 15 gm PO PRN PRN PRN Reason: Hypoglycemia Potassium Chloride 40 meq/ (Dextrose) 520 mls @ 130 mls/hr IV UD PRN PRN Reason: Potassium < 3 Magnesium Sulfate (Magnesium Sulfate) 2 gm in 50 mls @ 50 mls/hr IV UD PRN PRN Reason: Magnesium </= 1.6 REMDESIVIR 100 mg/ Sodium (Chloride) 250 mls @ 500 mls/hr IV DAILY [facility] Stop: 12/28/19 09:29 Insulin Glargine (Lantus) 8 unit SQ DAILY [facility] Insulin Human Lispro (Humalog) 0 unit SQ ACHS [facility]; Protocol Last Admin: 12/25/19 11:50 Dose: 6 unit Documented by: Lisinopril (Zestril) 5 mg PO DAILY [facility] Metoprolol Tartrate (Lopressor) 50 mg PO BID [facility] Metoprolol Tartrate (Lopressor) 5 mg IV Q2HP PRN PRN Reason: Tachyarrhythmias HR>110 Nitroglycerin (Nitrostat) 0.4 mg SL Q5M PRN PRN Reason: Chest Pain Ondansetron HCl (Zofran) 4 mg IV Q4HP PRN PRN Reason: Nausea And Vomiting Potassium Chloride (Kdur) 40 meq PO UD PRN PRN Reason: Potssium is 3-3.5 Potassium Chloride (Kdur) 40 meq PO UD PRN PRN Reason: Potassium < 3 Senna (Senokot) 2 tab PO DAILYP PRN PRN Reason: Constipation Sodium Chloride (Saline Flush) 10 ml IV Q8 [facility] Last Admin: 12/25/19 14:31 Dose: 10 ml Documented by: Thiamine HCl (Vitamin B1) 100 mg PO DAILY [facility] Vitamin D (Vitamin D3) 1,000 unit PO DAILY [facility] Vitamin D (Vitamin D3) 1,000 unit PO DAILY [facility] A/P Narrative A/P Narrative: 1. Acute hypoxic respiratory failure pulse ox oxygen therapy to keep sat > 92% 2. Pneumonia, covid 19 Clinical pneumonia/copd Remdesivir 5 day course Dexamethasone 6mg po x 10 days Eliquis 5mg bid Aspirin 81mg daily Vitam D, thiamine 3. Covid positive 4. A. fib RVR: -trop neg -Continue metoprolol 50mg bid -metorpolol 5mg iv prn -Eliquis 5mg bid 5. Hyponatremia: 6. volume depletion: 7. CAD with history of CAB. HTN/HLD: 9. DM: 10. Electrolytes derangement P: -echo pending -TSH 1.31 -cont BB -f/u chemistry/sodium after volume repletion -cont ASA/Statin -basal and SSI -IS, monitor O2 -supplement of electrolytes, repeat them in am -ppx: Eliquis Time Spent With Patient Time: Total time spent is greater than 50% in coordination of care (as do cumented) at patient's floor/unit and/or counseling patient:
[2019-12-26] MEDS: 0.9 % SODIUM CHLORIDE 10 ML SYRINGE IV SCH ×4 (04:48→21:56)
[2019-12-26 06:38] LABS: Basophils # (Auto) 0.01 K/mcL (0.00-0.20); Basophils % (Auto) 0.1 % (0.0-2.0); Eosinophils # (Auto) 0 K/mcL (0.00-0.70); Eosinophils % (Auto) 0 % (0.0-7.0); Hematocrit 34.7 % (41.0-55.0); Hemoglobin 11.9 g/dL (13.5-16.5); Lymphocytes # (Auto) 0.91 K/mcL (1.50-4.80); Lymphocytes % (Auto) 12.9 % (15.0-49.0); Mean Cell Volume 89.9 fL (80.0-100.0); Mean Corpuscular HGB Conc 34.3 g/dL (31.0-36.0); Mean Platelet Volume 9.3 fL (7.4-10.4); Monocytes # (Auto) 0.72 K/mcL (0.10-0.90); Monocytes % (Auto) 10.2 % (1.0-12.0); Neutrophils % (Auto) 76.8 % (38.0-78.0); Platelet Count 238 K/mcL (140-440); RBC 3.86 M/mcL (4.50-5.90); Red Cell Distribution Width 11.6 % (11.5-14.5); WBC 7.1 K/mcL (4.5-11.0)
[2019-12-26 07:08] LABS: ALT/SGPT 11 U/L (<40); AST/SGOT 19 U/L (<40); Albumin 3.3 gm/dL (3.2-5.2); Albumin/Globulin Ratio 0.9 (1.0-2.3); Alkaline Phosphatase 71 U/L (39-117); Bilirubin,Total 0.8 mg/dL (0.1-1.0); Blood Urea Nitrogen 32 mg/dL (8-23); Calcium 9.8 mg/dL (8.6-10.4); Carbon Dioxide 22 mmol/L (22-30); Chloride 98 mmol/L (96-108); Globulin 3.8 gm/dL (2.2-3.7); Glomerular Filtration Rate 79; Glucose 155 mg/dL (70-105); Phosphorous 3.7 mg/dL (2.5-4.5)
[2019-12-26] MEDS: INSULIN LISPRO 1 UNIT/0.01 ML UNIT SQ SCH ×4 (08:35→22:14)
[2019-12-26] MEDS ORDERED: VITAMIN D3 1,000 UNIT TABLET PO SCH ×2 (09:00)
[2019-12-26] MEDS ORDERED: ERGOCALCIFEROL (VITAMIN D2) 50,000 UNIT CAPSULE PO SCH (09:00)
[2019-12-26] MEDS: REMDESIVIR 100 MG in 0.9 % SODIUM CHLORIDE 250 ML IV SCH (09:35)
[2019-12-26] MEDS: ASPIRIN 81 MG TAB.CHEW PO SCH (09:36)
[2019-12-26] MEDS: INSULIN GLARGINE, HUMAN 1 UNIT/0.01 ML SQ SCH (09:36)
[2019-12-26] MEDS: DEXAMETHASONE 4 MG TABLET PO SCH (09:36)
[2019-12-26] MEDS: ATORVASTATIN 40 MG TABLET PO SCH (09:37)
[2019-12-26] MEDS: THIAMINE 100 MG TABLET PO SCH (09:37)
[2019-12-26] MEDS: LISINOPRIL 5 MG TABLET PO SCH (09:37)
[2019-12-26] MEDS: VITAMIN D3 1,000 UNIT TABLET PO SCH (09:37)
[2019-12-26] MEDS: METOPROLOL TARTRATE 50 MG TABLET PO SCH (09:37)
[2019-12-26] MEDS: APIXABAN 5 MG TABLET PO SCH ×2 (09:38→21:55)
[2019-12-26] MEDS: DOCUSATE SODIUM 100 MG CAPSULE PO SCH ×3 (09:38→20:57)
--- NOTE | 2019-12-26 13:16 | Internal Med Progress Note ---
SUBJECTIVE Subjective Patient information: Note initiated : 12/26/19 at 1:12 pm Service Date, if different from initiated Date: [] Patient: Chemo Shields a 84 y/o M admitted on 12/23/19 for chest pain/cough. Chief Complaint: [] Mr. Shields is a 84 year old M pResents to the ED with palpitations and chest discomfort. Patient is Tuesday*developing a cough with mild shortness of breath and this morning had palpitation described as rapid and irregular and had some chest discomfort with it. The ED was found to have A. fib RVR and given diltiazem bolus with improvement. Chest discomfort resolved. Troponin unremarkable. Covid test was positive. On room air doing well. Found to be mildly hyponatremic. Some mild volume depletion likely. 12/23 Pt feels fine and does not have new complaints. NO overnight events. He is on 1L oxygen. But I would like to start remdesivir for him now considering his age and the fact that the earlier we start remdesivir the better. He has newly onset a fib. I would like to start him on anticoagulation with Eliquis. 12/24 Pt feels fine. Denies fever/chill or n/v. He is on RM with good saturation. Lab showed some electrolytes derangement and vitd insufficiency. 12/25 Pt does not have new complaints and feels fine. But he needs 2L. Yesterday he was on RM -1L. No overnight events. Review of Systems: Pertinent positives as above. Denies headache/fever/chills/nausea/vomiting/ abdominal pain/diarrhea. Many 10 point review of system reviewed negative Constitutional Vitals: Vital Signs Temp Pulse Resp BP Pulse Ox 97.5 F 67 18 118/62 92 12/26/19 08:32 12/26/19 08:32 12/26/19 08:32 12/26/19 08:32 12/26/19 08:32 Period Temp Pulse Resp BP Sys/Aranda Pulse Ox Last 24 Hr 96.8 F-98.7 F 62-80 18-23 101-118/44-67 87-93 Intake and Output 12/25/19 12/26/19 12/26/19 21:59 05:59 13:59 Intake Total 556.5455 1949 Output Total 850 700 Balance -293.4545 -700 1949 Weight 73.845 kg Intake & Output: Intake & Output 12/25/19 12/26/19 12/26/19 21:59 05:59 13:59 Intake Total 556.5455 1950 Output Total 850 700 Balance -293.4545 -700 1950 Weight 73.845 kg Intake: IV 556.5455 250 Magnesium Sulfate 8.12 Meq In 52 Dextrose 5% in Water 50 ml @ 52 mls/hr IV ONCE ONE Rx#: [id number] Potassium Phosphate 20 Meq In 254.5455 Dextrose 5% in Water 250 ml @ 127.273 mls/hr IV ONCE ONE Rx#: [id number] Veklury 100 mg In Sodium 250 250 Chloride 0.9% 250 ml @ 500 mls/ hr IV DAILY [facility] Rx#:[id number] Oral 1700 Output: Void Amount 850 700 Other: Meal Dinner Percent of Meal Consumed Refused Urine Appearance Clear Urine Color Dark Yellow Additional findings Additional findings: General - No acute distress Eyes - PERRLA, EOM intact ENT no rhinorrhea, no noticeable or palpable swelling, no redness or rash around throat or on face Neck supple, no JVD, no thyromegaly Respiratory: Course BS. Cardiovascular - RRR no m/r/g, GI - Normal bowel sounds, no distended, soft. Extremeties - No edema, cyanosis or clubbing Hemo/lymphatic/immune no lymphadenopathy Neurological Alert and oriented x 3, no focal neurological deficits. Psychiatry flat affect OBJ DATA Labs CBC & Chem 7: 12/26/19 05:20 12/26/19 05:20 Labs: Abnormal Lab Results 12/26/19 12/26/19 12/25/19 05:20 05:20 05:14 RBC 3.86 L Hgb 11.9 L Hct 34.7 L Lymph % (Auto) 12.9 L Lymph # (Auto) 0.91 L D-Dimer Sodium 130 L 127 L Chloride 92 L BUN 32 H Glucose 155 H 179 H Hemoglobin A1c Phosphorus 2.4 L Magnesium Ferritin 454.9 H Total Bilirubin 1.3 H C-React Prot High Sens 143.0 H Globulin 3.8 H Albumin/Globulin Ratio 0.9 L 25-OH Vitamin D Total 12/25/19 12/25/19 12/25/19 05:14 05:13 05:13 RBC 3.91 L Hgb 12.1 L Hct 34.9 L Lymph % (Auto) Lymph # (Auto) 0.91 L D-Dimer 2.58 H Sodium Chloride BUN Glucose Hemoglobin A1c Phosphorus Magnesium Ferritin Total Bilirubin C-React Prot High Sens Globulin Albumin/Globulin Ratio 25-OH Vitamin D Total 16.68 L 12/24/19 12/24/19 12/23/19 04:11 04:11 09:27 RBC 3.53 L Hgb 10.8 L Hct 31.6 L Lymph % (Auto) Lymph # (Auto) 1.39 L D-Dimer Sodium 129 L Chloride 94 L BUN 24 H Glucose 161 H Hemoglobin A1c 8.4 H Phosphorus Magnesium 1.5 L Ferritin Total Bilirubin 1.1 H C-React Prot High Sens Globulin Albumin/Globulin Ratio 25-OH Vitamin D Total Meds: Medications Acetaminophen (Tylenol) 650 mg PO Q6HP PRN PRN Reason: PAIN/FEVER > 101 Albuterol Sulfate (Ventolin) 1 puff INH Q4-6HP PRN PRN Reason: Shortness Of Breath Albuterol/Ipratropium (Duoneb) 3 ml NEB Q4HP PRN PRN Reason: Shortness Of Breath Apixaban (Eliquis) 5 mg PO BID [facility] Last Admin: 12/26/19 09:38 Dose: 5 mg Documented by: Aspirin (Aspirin) 81 mg PO DAILY [facility] Last Admin: 12/26/19 09:36 Dose: 81 mg Documented by: Atorvastatin Calcium (Lipitor) 40 mg PO DAILY [facility] Last Admin: 12/26/19 09:37 Dose: 40 mg Documented by: Dexamethasone (Decadron) 6 mg PO DAILY [facility] Last Admin: 12/26/19 09:36 Dose: 6 mg Documented by: Dextrose (Dextrose 50%) 0 ml IV UD PRN PRN Reason: Hypoglycemia Diagnostic Test (Pha) (Accu-Chek) 1 each FS ACHS [facility] Last Admin: 12/26/19 11:23 Dose: 1 each Documented by: Docusate Sodium (Colace) 100 mg PO BID [facility] Last Admin: 12/26/19 10:49 Dose: Not Given Documented by: Ergocalciferol (Drisdol) 50,000 unit PO WEEKLY [facility] Glucose (Insta-Glucose) 15 gm PO PRN PRN PRN Reason: Hypoglycemia Potassium Chloride 40 meq/ (Dextrose) 520 mls @ 130 mls/hr IV UD PRN PRN Reason: Potassium < 3 Magnesium Sulfate (Magnesium Sulfate) 2 gm in 50 mls @ 50 mls/hr IV UD PRN PRN Reason: Magnesium </= 1.6 REMDESIVIR 100 mg/ Sodium (Chloride) 250 mls @ 500 mls/hr IV DAILY [facility] Stop: 12/28/19 09:29 Last Infusion: 12/26/19 10:05 Dose: Infused Documented by: Insulin Glargine (Lantus) 8 unit SQ DAILY [facility] Last Admin: 12/26/19 09:36 Dose: 8 units Documented by: Insulin Human Lispro (Humalog) 0 unit SQ ACHS [facility]; Protocol Last Admin: 12/26/19 11:27 Dose: 6 unit Documented by: Lisinopril (Zestril) 5 mg PO DAILY [facility] Last Admin: 12/26/19 09:37 Dose: 5 mg Documented by: Metoprolol Tartrate (Lopressor) 50 mg PO BID [facility] Last Admin: 12/26/19 09:37 Dose: 50 mg Documented by: Metoprolol Tartrate (Lopressor) 5 mg IV Q2HP PRN PRN Reason: Tachyarrhythmias HR>110 Nitroglycerin (Nitrostat) 0.4 mg SL Q5M PRN PRN Reason: Chest Pain Ondansetron HCl (Zofran) 4 mg IV Q4HP PRN PRN Reason: Nausea And Vomiting Potassium Chloride (Kdur) 40 meq PO UD PRN PRN Reason: Potssium is 3-3.5 Potassium Chloride (Kdur) 40 meq PO UD PRN PRN Reason: Potassium < 3 Senna (Senokot) 2 tab PO DAILYP PRN PRN Reason: Constipation Sodium Chloride (Saline Flush) 10 ml IV Q8 [facility] Last Admin: 12/26/19 09:36 Dose: 10 ml Documented by: Thiamine HCl (Vitamin B1) 100 mg PO DAILY [facility] Last Admin: 12/26/19 09:37 Dose: 100 mg Documented by: Vitamin D (Vitamin D3) 2,000 unit PO DAILY [facility] Last Admin: 12/26/19 09:37 Dose: 2,000 unit Documented by: A/P Narrative A/P Narrative: 1. Acute hypoxic respiratory failure pulse ox oxygen therapy to keep sat > 92% 2. Pneumonia, covid 19 Clinical pneumonia/copd Remdesivir 5 day course Dexamethasone 6mg po x 10 days Eliquis 5mg bid Aspirin 81mg daily Vitam D, thiamine 3. Covid positive 4. A. fib RVR: -trop neg -Continue metoprolol 50mg bid -metorpolol 5mg iv prn -Eliquis 5mg bid 5. Hyponatremia: 6. volume depletion: 7. CAD with history of CAB. HTN/HLD: 9. DM: 10. Electrolytes derangement P: -echo pending -TSH 1.31 -cont BB -f/u chemistry/sodium after volume repletion -cont ASA/Statin -basal and SSI -IS, monitor O2 -supplement of electrolytes, repeat them in am -ppx: Eliquis Time 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
--- NOTE | 2019-12-26 17:11 | Event Note ---
Event Note Event Note: Advanced Care Planning Documents: Parties in Attendance: pt pt's decisional Capacity: Yes POLST form completed: Not. I explained CPR and intubation in detail to him. He agreed with CPR and intubation.
[2019-12-26] MEDS: METOPROLOL TARTRATE 25 MG TABLET PO SCH (21:56)
[2019-12-27] MEDS: 0.9 % SODIUM CHLORIDE 10 ML SYRINGE IV SCH ×3 (05:36→21:47)
[2019-12-27 06:34] LABS: Basophils # (Auto) 0.01 K/mcL (0.00-0.20); Basophils % (Auto) 0.1 % (0.0-2.0); Eosinophils # (Auto) 0 K/mcL (0.00-0.70); Eosinophils % (Auto) 0 % (0.0-7.0); Hematocrit 34.1 % (41.0-55.0); Hemoglobin 11.6 g/dL (13.5-16.5); Lymphocytes # (Auto) 1.18 K/mcL (1.50-4.80); Lymphocytes % (Auto) 10.1 % (15.0-49.0); Mean Cell Volume 90.5 fL (80.0-100.0); Monocytes # (Auto) 0.78 K/mcL (0.10-0.90); Monocytes % (Auto) 6.7 % (1.0-12.0); Neutrophils % (Auto) 83.1 % (38.0-78.0); Platelet Count 300 K/mcL (140-440); RBC 3.77 M/mcL (4.50-5.90); Red Cell Distribution Width 11.7 % (11.5-14.5); WBC 11.7 K/mcL (4.5-11.0)
[2019-12-27 07:04] LABS: ALT/SGPT 11 U/L (<40); AST/SGOT 19 U/L (<40); Albumin 3.4 gm/dL (3.2-5.2); Alkaline Phosphatase 76 U/L (39-117); Bilirubin,Total 0.6 mg/dL (0.1-1.0); Blood Urea Nitrogen 38 mg/dL (8-23); Calcium 9.7 mg/dL (8.6-10.4); Carbon Dioxide 23 mmol/L (22-30); Chloride 99 mmol/L (96-108); Globulin 3.5 gm/dL (2.2-3.7); Glomerular Filtration Rate 79; Glucose 207 mg/dL (70-105)
[2019-12-27] MEDS: INSULIN GLARGINE, HUMAN 1 UNIT/0.01 ML SQ SCH ×2 (07:51→10:13)
[2019-12-27] MEDS: ATORVASTATIN 40 MG TABLET PO SCH (07:52)
[2019-12-27] MEDS: INSULIN LISPRO 1 UNIT/0.01 ML UNIT SQ SCH ×4 (07:52→21:46)
[2019-12-27] MEDS ORDERED: DEXTROSE 50% 50 ML VIAL IV PRN (07:52)
[2019-12-27] MEDS: ASPIRIN 81 MG TAB.CHEW PO SCH (07:52)
[2019-12-27] MEDS ORDERED: DEXTROSE 31 GM ORAL.SUSP PO PRN (07:52)
[2019-12-27] MEDS: DEXAMETHASONE 4 MG TABLET PO SCH (07:52)
[2019-12-27] MEDS: DOCUSATE SODIUM 100 MG CAPSULE PO SCH ×3 (07:53→21:48)
[2019-12-27] MEDS: APIXABAN 5 MG TABLET PO SCH ×2 (07:53→21:27)
[2019-12-27] MEDS: THIAMINE 100 MG TABLET PO SCH (07:53)
[2019-12-27] MEDS: VITAMIN D3 1,000 UNIT TABLET PO SCH (07:53)
[2019-12-27] MEDS: LISINOPRIL 5 MG TABLET PO SCH (08:08)
[2019-12-27] MEDS: METOPROLOL TARTRATE 25 MG TABLET PO SCH ×3 (08:08→21:27)
[2019-12-27] MEDS: REMDESIVIR 100 MG in 0.9 % SODIUM CHLORIDE 250 ML IV SCH (10:14)
--- NOTE | 2019-12-27 13:28 | Internal Med Progress Note ---
SUBJECTIVE Subjective Patient information: Note initiated : 12/27/19 at 1:24 pm Service Date, if different from initiated Date: [] Patient: Chemo Shields a 84 y/o M admitted on 12/23/19 for chest pain/cough. Chief Complaint: [] Mr. Shields is a 84 year old M pResents to the ED with palpitations and chest discomfort. Patient is Tuesday*developing a cough with mild shortness of breath and this morning had palpitation described as rapid and irregular and had some chest discomfort with it. The ED was found to have A. fib RVR and given diltiazem bolus with improvement. Chest discomfort resolved. Troponin unremarkable. Covid test was positive. On room air doing well. Found to be mildly hyponatremic. Some mild volume depletion likely. 12/23 Pt feels fine and does not have new complaints. NO overnight events. He is on 1L oxygen. But I would like to start remdesivir for him now considering his age and the fact that the earlier we start remdesivir the better. He has newly onset a fib. I would like to start him on anticoagulation with Eliquis. 12/24 Pt feels fine. Denies fever/chill or n/v. He is on RM with good saturation. Lab showed some electrolytes derangement and vitd insufficiency. 12/25 Pt does not have new complaints and feels fine. But he needs 2L. Yesterday he was on RM -1L. No overnight events. 12/26 Pt feels fine and does not have new complaints. He is on 0.5-1L via NC. His glucose went up to > 400 and WBC 11.7 today. He is on steroid. BP is soft sometimes. Discontinued home lisinopril 5mg daily and decreased metoprolol to 25mg daily. No overnight event. Review of Systems: Pertinent positives as above. Denies headache/fever/chills/nausea/vomiting/ abdominal pain/diarrhea. Many 10 point review of system reviewed negative Constitutional Vitals: Vital Signs Temp Pulse Resp BP Pulse Ox 97.9 F 70 18 98/80 91 12/27/19 10:31 12/27/19 10:31 12/27/19 10:31 12/27/19 10:31 12/27/19 10:31 Period Temp Pulse Resp BP Sys/Aranda Pulse Ox Last 24 Hr 97.4 F-97.9 F 70-71 18-18 90-131/49-80 88-94 Intake and Output 12/26/19 12/27/19 12/27/19 21:59 05:59 13:59 Intake Total 560 450 360 Output Total 500 850 Balance 60 -400 360 Weight 73.21 kg Intake & Output: Intake & Output 12/26/19 12/27/19 12/27/19 21:59 05:59 13:59 Intake Total 560 450 360 Output Total 500 850 Balance 60 -400 360 Weight 73.21 kg Intake: Oral 560 450 360 Output: Void Amount 500 850 Other: Meal Lunch Dinner Breakfast Percent of Meal Consumed 100% 100% 100% Feeding Ability Independent Independent Stool Size Large Stool Color Brown Stool Consistency Formed Additional findings Additional findings: General - No acute distress Eyes - PERRLA, EOM intact ENT no rhinorrhea, no noticeable or palpable swelling, no redness or rash around throat or on face Neck supple, no JVD, no thyromegaly Respiratory: Course BS. Cardiovascular - RRR no m/r/g, GI - Normal bowel sounds, no distended, soft. Extremeties - No edema, cyanosis or clubbing Hemo/lymphatic/immune no lymphadenopathy Neurological Alert and oriented x 3, no focal neurological deficits. Psychiatry flat affect OBJ DATA Labs CBC & Chem 7: 12/27/19 05:14 12/27/19 05:14 Labs: Abnormal Lab Results 12/27/19 12/27/19 12/26/19 05:14 05:14 05:20 WBC 11.7 H RBC 3.77 L Hgb 11.6 L Hct 34.1 L Neut % (Auto) 83.1 H Lymph % (Auto) 10.1 L Lymph # (Auto) 1.18 L Absolute Neutrophils 9.70 H D-Dimer Sodium 130 L Chloride BUN 38 H 32 H Glucose 207 H 155 H Phosphorus Ferritin Total Bilirubin C-React Prot High Sens Globulin 3.8 H Albumin/Globulin Ratio 0.9 L 25-OH Vitamin D Total 12/26/19 12/25/19 12/25/19 05:20 05:14 05:14 WBC RBC 3.86 L 3.91 L Hgb 11.9 L 12.1 L Hct 34.7 L 34.9 L Neut % (Auto) Lymph % (Auto) 12.9 L Lymph # (Auto) 0.91 L 0.91 L Absolute Neutrophils D-Dimer Sodium 127 L Chloride 92 L BUN Glucose 179 H Phosphorus 2.4 L Ferritin 454.9 H Total Bilirubin 1.3 H C-React Prot High Sens 143.0 H Globulin Albumin/Globulin Ratio 25-OH Vitamin D Total 12/25/19 12/25/19 05:13 05:13 WBC RBC Hgb Hct Neut % (Auto) Lymph % (Auto) Lymph # (Auto) Absolute Neutrophils D-Dimer 2.58 H Sodium Chloride BUN Glucose Phosphorus Ferritin Total Bilirubin C-React Prot High Sens Globulin Albumin/Globulin Ratio 25-OH Vitamin D Total 16.68 L Meds: Medications Acetaminophen (Tylenol) 650 mg PO Q6HP PRN PRN Reason: PAIN/FEVER > 101 Albuterol Sulfate (Ventolin) 1 puff INH Q4-6HP PRN PRN Reason: Shortness Of Breath Albuterol/Ipratropium (Duoneb) 3 ml NEB Q4HP PRN PRN Reason: Shortness Of Breath Apixaban (Eliquis) 5 mg PO BID [facility] Last Admin: 12/27/19 07:53 Dose: 5 mg Documented by: Aspirin (Aspirin) 81 mg PO DAILY [facility] Last Admin: 12/27/19 07:52 Dose: 81 mg Documented by: Atorvastatin Calcium (Lipitor) 40 mg PO DAILY [facility] Last Admin: 12/27/19 07:52 Dose: 40 mg Documented by: Dexamethasone (Decadron) 6 mg PO DAILY [facility] Last Admin: 12/27/19 07:52 Dose: 6 mg Documented by: Dextrose (Dextrose 50%) 0 ml IV UD PRN PRN Reason: Hypoglycemia Diagnostic Test (Pha) (Accu-Chek) 1 each FS ACHS [facility] Last Admin: 12/27/19 11:36 Dose: 1 each Documented by: Docusate Sodium (Colace) 100 mg PO BID [facility] Last Admin: 12/27/19 09:32 Dose: Not Given Documented by: Ergocalciferol (Drisdol) 50,000 unit PO WEEKLY [facility] Glucose (Insta-Glucose) 15 gm PO PRN PRN PRN Reason: Hypoglycemia Potassium Chloride 40 meq/ (Dextrose) 520 mls @ 130 mls/hr IV UD PRN PRN Reason: Potassium < 3 Magnesium Sulfate (Magnesium Sulfate) 2 gm in 50 mls @ 50 mls/hr IV UD PRN PRN Reason: Magnesium </= 1.6 REMDESIVIR 100 mg/ Sodium (Chloride) 250 mls @ 500 mls/hr IV DAILY [facility] Stop: 12/28/19 09:29 Last Admin: 12/27/19 10:14 Dose: 500 mls/hr Documented by: Insulin Glargine (Lantus) 16 unit SQ DAILY [facility] Last Admin: 12/27/19 10:13 Dose: 16 units Documented by: Insulin Human Lispro (Humalog) 0 unit SQ ACHS [facility]; Protocol Last Admin: 12/27/19 11:58 Dose: 6 units Documented by: Lisinopril (Zestril) 5 mg PO DAILY [facility] Last Admin: 12/27/19 08:08 Dose: Not Given Documented by: Metoprolol Tartrate (Lopressor) 5 mg IV Q2HP PRN PRN Reason: Tachyarrhythmias HR>110 Metoprolol Tartrate (Lopressor) 25 mg PO BID [facility] Last Admin: 12/27/19 11:58 Dose: 25 mg Documented by: Nitroglycerin (Nitrostat) 0.4 mg SL Q5M PRN PRN Reason: Chest Pain Ondansetron HCl (Zofran) 4 mg IV Q4HP PRN PRN Reason: Nausea And Vomiting Potassium Chloride (Kdur) 40 meq PO UD PRN PRN Reason: Potssium is 3-3.5 Potassium Chloride (Kdur) 40 meq PO UD PRN PRN Reason: Potassium < 3 Senna (Senokot) 2 tab PO DAILYP PRN PRN Reason: Constipation Sodium Chloride (Saline Flush) 10 ml IV Q8 [facility] Last Admin: 12/27/19 05:36 Dose: 10 ml Documented by: Thiamine HCl (Vitamin B1) 100 mg PO DAILY [facility] Last Admin: 12/27/19 07:53 Dose: 100 mg Documented by: Vitamin D (Vitamin D3) 2,000 unit PO DAILY [facility] Last Admin: 12/27/19 07:53 Dose: 2,000 unit Documented by: A/P Narrative A/P Narrative: 1. Acute hypoxic respiratory failure pulse ox oxygen therapy to keep sat > 92% 2. Pneumonia, covid 19 Clinical pneumonia/copd Remdesivir 5 day course Dexamethasone 6mg po x 10 days Eliquis 5mg bid Aspirin 81mg daily Vitam D, thiamine 3. Covid positive 4. A. fib RVR: -trop neg -Continue metoprolol 25mg bid -metorpolol 5mg iv prn -Eliquis 5mg bid 5. Hyponatremia: 6. volume depletion: 7. CAD with history of CAB. HTN/HLD: discontinued lisinopril 5mg daily and decreased metoprolol to 25mg bid due to soft BP sometimes. 9. DM: 10. Electrolytes derangement P: -echo - EF 55-60% -TSH 1.31 -cont BB -f/u chemistry/sodium after volume repletion -cont ASA/Statin -basal and SSI -IS, monitor O2 -supplement of electrolytes, repeat them in am -ppx: Eliquis Time 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
[2019-12-28] MEDS: 0.9 % SODIUM CHLORIDE 10 ML SYRINGE IV SCH ×3 (06:02→20:12)
[2019-12-28 08:12] LABS: ALT/SGPT 11 U/L (<40); AST/SGOT 17 U/L (<40); Albumin 2.9 gm/dL (3.2-5.2); Albumin/Globulin Ratio 0.8 (1.0-2.3); Alkaline Phosphatase 87 U/L (39-117); Bilirubin,Direct 0.2 mg/dL (<0.3); Bilirubin,Total 0.7 mg/dL (0.1-1.0); Blood Urea Nitrogen 31 mg/dL (8-23); Calcium 9.7 mg/dL (8.6-10.4); Carbon Dioxide 23 mmol/L (22-30); Chloride 102 mmol/L (96-108); Globulin 3.7 gm/dL (2.2-3.7); Glomerular Filtration Rate 83; Glucose 150 mg/dL (70-105); Lactate Dehydrogenase 237 U/L (135-225); Triglycerides 69 mg/dL (<150); Uric Acid 4.7 mg/dL (2.5-8.0)
[2019-12-28] MEDS: INSULIN GLARGINE, HUMAN 1 UNIT/0.01 ML SQ SCH (08:22)
[2019-12-28] MEDS: INSULIN LISPRO 1 UNIT/0.01 ML UNIT SQ SCH ×4 (08:22→20:12)
[2019-12-28] MEDS: ATORVASTATIN 40 MG TABLET PO SCH (08:22)
[2019-12-28] MEDS: METOPROLOL TARTRATE 25 MG TABLET PO SCH ×2 (08:23→20:12)
[2019-12-28] MEDS: APIXABAN 5 MG TABLET PO SCH ×2 (08:23→20:12)
[2019-12-28] MEDS: DEXAMETHASONE 4 MG TABLET PO SCH (08:23)
[2019-12-28] MEDS: DOCUSATE SODIUM 100 MG CAPSULE PO SCH ×2 (08:23→20:13)
[2019-12-28] MEDS: ASPIRIN 81 MG TAB.CHEW PO SCH (08:23)
[2019-12-28] MEDS: VITAMIN D3 1,000 UNIT TABLET PO SCH (08:23)
[2019-12-28] MEDS: THIAMINE 100 MG TABLET PO SCH (08:24)
[2019-12-28] MEDS: REMDESIVIR 100 MG in 0.9 % SODIUM CHLORIDE 250 ML IV SCH (08:50)
--- NOTE | 2019-12-28 15:35 | Internal Med Progress Note ---
SUBJECTIVE Subjective Patient information: Note initiated : 12/28/19 at 3:34 pm Service Date, if different from initiated Date: [] Patient: Chemo Shields a 84 y/o M admitted on 12/23/19 for chest pain/cough. Chief Complaint: [] Mr. Shields is a 84 year old M pResents to the ED with palpitations and chest discomfort. Patient is Tuesday*developing a cough with mild shortness of breath and this morning had palpitation described as rapid and irregular and had some chest discomfort with it. The ED was found to have A. fib RVR and given diltiazem bolus with improvement. Chest discomfort resolved. Troponin unremarkable. Covid test was positive. On room air doing well. Found to be mildly hyponatremic. Some mild volume depletion likely. 12/23 Pt feels fine and does not have new complaints. NO overnight events. He is on 1L oxygen. But I would like to start remdesivir for him now considering his age and the fact that the earlier we start remdesivir the better. He has newly onset a fib. I would like to start him on anticoagulation with Eliquis. 12/24 Pt feels fine. Denies fever/chill or n/v. He is on RM with good saturation. Lab showed some electrolytes derangement and vitd insufficiency. 12/25 Pt does not have new complaints and feels fine. But he needs 2L. Yesterday he was on RM -1L. No overnight events. 12/26 Pt feels fine and does not have new complaints. He is on 0.5-1L via NC. His glucose went up to > 400 and WBC 11.7 today. He is on steroid. BP is soft sometimes. Discontinued home lisinopril 5mg daily and decreased metoprolol to 25mg daily. No overnight event. 12/27 No new complaints. He is now on 3-5L Blood glucose is not well controlled due to use of steroid. Review of Systems: Pertinent positives as above. Denies headache/fever/chills/nausea/vomiting/ abdominal pain/diarrhea. Many 10 point review of system reviewed negative Constitutional Vitals: Vital Signs Temp Pulse Resp BP Pulse Ox 97.1 F 73 18 127/52 97 12/28/19 12:00 12/28/19 12:00 12/28/19 12:00 12/28/19 12:00 12/28/19 12:05 Period Temp Pulse Resp BP Sys/Aranda Pulse Ox Last 24 Hr 96.9 F-98.3 F 63-80 18-24 102-137/48-95 77-99 Intake and Output 12/28/19 12/28/19 12/28/19 05:59 13:59 21:59 Intake Total 780 300 300 Output Total 551 450 Balance 229 -150 300 Intake & Output: Intake & Output 12/28/19 12/28/19 12/28/19 05:59 13:59 21:59 Intake Total 780 300 300 Output Total 551 450 Balance 229 -150 300 Intake: Nourishment/Supplement quantity 240 (ml) Oral 540 300 300 Output: Void Amount 550 450 # of times incontinent of urine 1 Other: Meal Breakfast Lunch Percent of Meal Consumed 100% 100% Feeding Ability Independent Independent Nourishment/Supplement name glucerna Urine Appearance Clear Clear Urine Color Straw Bright Yellow Urine Odor Normal Additional findings Additional findings: General - No acute distress Eyes - PERRLA, EOM intact ENT no rhinorrhea, no noticeable or palpable swelling, no redness or rash around throat or on face Neck supple, no JVD, no thyromegaly Respiratory: Course BS. Cardiovascular - RRR no m/r/g, GI - Normal bowel sounds, no distended, soft. Extremeties - No edema, cyanosis or clubbing Hemo/lymphatic/immune no lymphadenopathy Neurological Alert and oriented x 3, no focal neurological deficits. Psychiatry flat affect OBJ DATA Labs CBC & Chem 7: 12/27/19 05:14 12/28/19 07:00 Labs: Abnormal Lab Results 12/28/19 12/27/19 12/27/19 07:00 05:14 05:14 WBC 11.7 H RBC 3.77 L Hgb 11.6 L Hct 34.1 L Neut % (Auto) 83.1 H Lymph % (Auto) 10.1 L Lymph # (Auto) 1.18 L Absolute Neutrophils 9.70 H Sodium BUN 31 H 38 H Glucose 150 H 207 H Lactate Dehydrogenase 237 H Albumin 2.9 L Globulin Albumin/Globulin Ratio 0.8 L 12/26/19 12/26/19 05:20 05:20 WBC RBC 3.86 L Hgb 11.9 L Hct 34.7 L Neut % (Auto) Lymph % (Auto) 12.9 L Lymph # (Auto) 0.91 L Absolute Neutrophils Sodium 130 L BUN 32 H Glucose 155 H Lactate Dehydrogenase Albumin Globulin 3.8 H Albumin/Globulin Ratio 0.9 L Meds: Medications Acetaminophen (Tylenol) 650 mg PO Q6HP PRN PRN Reason: PAIN/FEVER > 101 Albuterol Sulfate (Ventolin) 1 puff INH Q4-6HP PRN PRN Reason: Shortness Of Breath Albuterol/Ipratropium (Duoneb) 3 ml NEB Q4HP PRN PRN Reason: Shortness Of Breath Apixaban (Eliquis) 5 mg PO BID [facility] Last Admin: 12/28/19 08:23 Dose: 5 mg Documented by: Aspirin (Aspirin) 81 mg PO DAILY [facility] Last Admin: 12/28/19 08:23 Dose: 81 mg Documented by: Atorvastatin Calcium (Lipitor) 40 mg PO DAILY [facility] Last Admin: 12/28/19 08:22 Dose: 40 mg Documented by: Dexamethasone (Decadron) 6 mg PO DAILY [facility] Last Admin: 12/28/19 08:23 Dose: 6 mg Documented by: Dextrose (Dextrose 50%) 0 ml IV UD PRN PRN Reason: Hypoglycemia Diagnostic Test (Pha) (Accu-Chek) 1 each FS ACHS [facility] Last Admin: 12/28/19 12:00 Dose: 1 each Documented by: Docusate Sodium (Colace) 100 mg PO BID [facility] Last Admin: 12/28/19 08:23 Dose: 100 mg Documented by: Ergocalciferol (Drisdol) 50,000 unit PO WEEKLY [facility] Glucose (Insta-Glucose) 15 gm PO PRN PRN PRN Reason: Hypoglycemia Potassium Chloride 40 meq/ (Dextrose) 520 mls @ 130 mls/hr IV UD PRN PRN Reason: Potassium < 3 Magnesium Sulfate (Magnesium Sulfate) 2 gm in 50 mls @ 50 mls/hr IV UD PRN PRN Reason: Magnesium </= 1.6 Insulin Glargine (Lantus) 16 unit SQ DAILY [facility] Last Admin: 12/28/19 08:22 Dose: 16 units Documented by: Insulin Human Lispro (Humalog) 0 unit SQ ACHS [facility]; Protocol Last Admin: 12/28/19 12:00 Dose: 10 units Documented by: Metoprolol Tartrate (Lopressor) 5 mg IV Q2HP PRN PRN Reason: Tachyarrhythmias HR>110 Metoprolol Tartrate (Lopressor) 25 mg PO BID [facility] Last Admin: 12/28/19 08:23 Dose: 25 mg Documented by: Nitroglycerin (Nitrostat) 0.4 mg SL Q5M PRN PRN Reason: Chest Pain Ondansetron HCl (Zofran) 4 mg IV Q4HP PRN PRN Reason: Nausea And Vomiting Potassium Chloride (Kdur) 40 meq PO UD PRN PRN Reason: Potssium is 3-3.5 Potassium Chloride (Kdur) 40 meq PO UD PRN PRN Reason: Potassium < 3 Senna (Senokot) 2 tab PO DAILYP PRN PRN Reason: Constipation Sodium Chloride (Saline Flush) 10 ml IV Q8 [facility] Last Admin: 12/28/19 14:00 Dose: 10 ml Documented by: Thiamine HCl (Vitamin B1) 100 mg PO DAILY [facility] Last Admin: 12/28/19 08:24 Dose: 100 mg Documented by: Vitamin D (Vitamin D3) 2,000 unit PO DAILY [facility] Last Admin: 12/28/19 08:23 Dose: 2,000 unit Documented by: A/P Narrative A/P Narrative: 1. Acute hypoxic respiratory failure pulse ox oxygen therapy to keep sat > 92% 2. Pneumonia, covid 19 Clinical pneumonia/copd Remdesivir 5 day course Dexamethasone 6mg po x 10 days Eliquis 5mg bid Aspirin 81mg daily Vitam D, thiamine 3. Covid positive 4. A. fib RVR: -trop neg -Continue metoprolol 25mg bid -metorpolol 5mg iv prn -Eliquis 5mg bid 5. Hyponatremia: 6. volume depletion: 7. CAD with history of CAB. HTN/HLD: discontinued lisinopril 5mg daily and decreased metoprolol to 25mg bid due to soft BP sometimes. 9. DM: 10. Electrolytes derangement P: -echo - EF 55-60% -TSH 1.31 -cont BB -f/u chemistry/sodium after volume repletion -cont ASA/Statin -basal and SSI -IS, monitor O2 -supplement of electrolytes, repeat them in am -ppx: Eliquis Time 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
[2019-12-29] MEDS: 0.9 % SODIUM CHLORIDE 10 ML SYRINGE IV SCH ×3 (04:17→20:46)
[2019-12-29] MEDS: INSULIN LISPRO 1 UNIT/0.01 ML UNIT SQ SCH ×5 (07:25→20:46)
[2019-12-29 07:37] LABS: Basophils # (Auto) 0.04 K/mcL (0.00-0.20); Basophils % (Auto) 0.3 % (0.0-2.0); Eosinophils # (Auto) 0.03 K/mcL (0.00-0.70); Eosinophils % (Auto) 0.3 % (0.0-7.0); Hematocrit 33.4 % (41.0-55.0); Hemoglobin 11.5 g/dL (13.5-16.5); Lymphocytes # (Auto) 1.41 K/mcL (1.50-4.80); Lymphocytes % (Auto) 12.2 % (15.0-49.0); Mean Cell Volume 94.9 fL (80.0-100.0); Mean Corpuscular HGB Conc 34.4 g/dL (31.0-36.0); Mean Platelet Volume 9.2 fL (7.4-10.4); Monocytes # (Auto) 0.83 K/mcL (0.10-0.90); Monocytes % (Auto) 7.2 % (1.0-12.0); Platelet Count 301 K/mcL (140-440); RBC 3.52 M/mcL (4.50-5.90); Red Cell Distribution Width 11.9 % (11.5-14.5); WBC 11.6 K/mcL (4.5-11.0)
[2019-12-29 08:32] LABS: ALT/SGPT 10 U/L (<40); AST/SGOT 15 U/L (<40); Albumin 3.2 gm/dL (3.2-5.2); Albumin/Globulin Ratio 0.9 (1.0-2.3); Alkaline Phosphatase 89 U/L (39-117); Bilirubin,Total 0.9 mg/dL (0.1-1.0); Blood Urea Nitrogen 25 mg/dL (8-23); Calcium 9.9 mg/dL (8.6-10.4); Carbon Dioxide 23 mmol/L (22-30); Chloride 100 mmol/L (96-108); Globulin 3.7 gm/dL (2.2-3.7); Glomerular Filtration Rate 83; Glucose 144 mg/dL (70-105)
[2019-12-29] MEDS: ASPIRIN 81 MG TAB.CHEW PO SCH (09:29)
[2019-12-29] MEDS: THIAMINE 100 MG TABLET PO SCH (09:29)
[2019-12-29] MEDS: DEXAMETHASONE 4 MG TABLET PO SCH (09:30)
[2019-12-29] MEDS: DOCUSATE SODIUM 100 MG CAPSULE PO SCH ×2 (09:30→20:45)
[2019-12-29] MEDS: ATORVASTATIN 40 MG TABLET PO SCH (09:30)
[2019-12-29] MEDS: VITAMIN D3 1,000 UNIT TABLET PO SCH (09:31)
[2019-12-29] MEDS: METOPROLOL TARTRATE 25 MG TABLET PO SCH ×2 (09:31→20:46)
[2019-12-29] MEDS: APIXABAN 5 MG TABLET PO SCH ×2 (09:31→20:46)
[2019-12-29] MEDS: INSULIN GLARGINE, HUMAN 1 UNIT/0.01 ML SQ SCH (09:32)
--- NOTE | 2019-12-29 12:02 | Internal Med Progress Note ---
SUBJECTIVE Subjective Patient information: Note initiated : 12/29/19 at 12:01 pm Service Date, if different from initiated Date: [] Patient: Chemo Shields a 84 y/o M admitted on 12/23/19 for chest pain/cough. Chief Complaint: [] Mr. Shields is a 84 year old M pResents to the ED with palpitations and chest discomfort. Patient is Tuesday*developing a cough with mild shortness of breath and this morning had palpitation described as rapid and irregular and had some chest discomfort with it. The ED was found to have A. fib RVR and given diltiazem bolus with improvement. Chest discomfort resolved. Troponin unremarkable. Covid test was positive. On room air doing well. Found to be mildly hyponatremic. Some mild volume depletion likely. 12/23 Pt feels fine and does not have new complaints. NO overnight events. He is on 1L oxygen. But I would like to start remdesivir for him now considering his age and the fact that the earlier we start remdesivir the better. He has newly onset a fib. I would like to start him on anticoagulation with Eliquis. 12/24 Pt feels fine. Denies fever/chill or n/v. He is on RM with good saturation. Lab showed some electrolytes derangement and vitd insufficiency. 12/25 Pt does not have new complaints and feels fine. But he needs 2L. Yesterday he was on RM -1L. No overnight events. 12/26 Pt feels fine and does not have new complaints. He is on 0.5-1L via NC. His glucose went up to > 400 and WBC 11.7 today. He is on steroid. BP is soft sometimes. Discontinued home lisinopril 5mg daily and decreased metoprolol to 25mg daily. No overnight event. 12/27 No new complaints. He is now on 3-5L Blood glucose is not well controlled due to use of steroid. 12/28 No new complaints. He is now on 3-5L Blood glucose is relatively controlled. WBC 11.6, could be due to use of steroid Review of Systems: Pertinent positives as above. Denies headache/fever/chills/nausea/vomiting/ abdominal pain/diarrhea. Many 10 point review of system reviewed negative Constitutional Vitals: Vital Signs Temp Pulse Resp BP Pulse Ox 97.8 F 70 16 138/69 92 12/29/19 07:35 12/29/19 07:35 12/29/19 07:54 12/29/19 07:35 12/29/19 07:54 Period Temp Pulse Resp BP Sys/Aranda Pulse Ox Last 24 Hr 97.6 F-98.3 F 64-78 16-24 118-164/50-69 90-97 Intake and Output 12/28/19 12/29/19 12/29/19 21:59 05:59 13:59 Intake Total 1080 240 Output Total 825 275 Balance 3325 -585 -213 Weight 74.446 kg Intake & Output: Intake & Output 12/28/19 12/29/19 12/29/19 21:59 05:59 13:59 Intake Total 1080 240 Output Total 825 275 Balance 6322 -585 -707 Weight 74.446 kg Intake: Oral 1080 240 Output: Void Amount 825 275 Other: Meal Dinner Percent of Meal Consumed 100% Feeding Ability Independent Urine Appearance Clear Clear Urine Color Straw Bright Yellow Urine Odor Normal Additional findings Additional findings: General - No acute distress Eyes - PERRLA, EOM intact ENT no rhinorrhea, no noticeable or palpable swelling, no redness or rash around throat or on face Neck supple, no JVD, no thyromegaly Respiratory: Course BS. Cardiovascular - RRR no m/r/g, GI - Normal bowel sounds, no distended, soft. Extremeties - No edema, cyanosis or clubbing Hemo/lymphatic/immune no lymphadenopathy Neurological Alert and oriented x 3, no focal neurological deficits. Psychiatry flat affect OBJ DATA Labs CBC & Chem 7: 12/29/19 05:35 12/29/19 05:35 Labs: Abnormal Lab Results 12/29/19 12/29/19 12/28/19 05:35 05:35 07:00 WBC 11.6 H RBC 3.52 L Hgb 11.5 L Hct 33.4 L Neut % (Auto) 80.0 H Lymph % (Auto) 12.2 L Lymph # (Auto) 1.41 L Absolute Neutrophils 9.27 H BUN 25 H 31 H Glucose 144 H 150 H Lactate Dehydrogenase 237 H Albumin 2.9 L Albumin/Globulin Ratio 0.9 L 0.8 L 12/27/19 12/27/19 05:14 05:14 WBC 11.7 H RBC 3.77 L Hgb 11.6 L Hct 34.1 L Neut % (Auto) 83.1 H Lymph % (Auto) 10.1 L Lymph # (Auto) 1.18 L Absolute Neutrophils 9.70 H BUN 38 H Glucose 207 H Lactate Dehydrogenase Albumin Albumin/Globulin Ratio Meds: Medications Acetaminophen (Tylenol) 650 mg PO Q6HP PRN PRN Reason: PAIN/FEVER > 101 Albuterol Sulfate (Ventolin) 1 puff INH Q4-6HP PRN PRN Reason: Shortness Of Breath Albuterol/Ipratropium (Duoneb) 3 ml NEB Q4HP PRN PRN Reason: Shortness Of Breath Apixaban (Eliquis) 5 mg PO BID [facility] Last Admin: 12/29/19 09:31 Dose: 5 mg Documented by: Aspirin (Aspirin) 81 mg PO DAILY [facility] Last Admin: 12/29/19 09:29 Dose: 81 mg Documented by: Atorvastatin Calcium (Lipitor) 40 mg PO DAILY [facility] Last Admin: 12/29/19 09:30 Dose: 40 mg Documented by: Dexamethasone (Decadron) 6 mg PO DAILY [facility] Last Admin: 12/29/19 09:30 Dose: 6 mg Documented by: Dextrose (Dextrose 50%) 0 ml IV UD PRN PRN Reason: Hypoglycemia Diagnostic Test (Pha) (Accu-Chek) 1 each FS [facility] Last Admin: 12/29/19 07:23 Dose: 1 each Documented by: Docusate Sodium (Colace) 100 mg PO BID [facility] Last Admin: 12/29/19 09:30 Dose: 100 mg Documented by: Ergocalciferol (Drisdol) 50,000 unit PO WEEKLY [facility] Glucose (Insta-Glucose) 15 gm PO PRN PRN PRN Reason: Hypoglycemia Potassium Chloride 40 meq/ (Dextrose) 520 mls @ 130 mls/hr IV UD PRN PRN Reason: Potassium < 3 Magnesium Sulfate (Magnesium Sulfate) 2 gm in 50 mls @ 50 mls/hr IV UD PRN PRN Reason: Magnesium </= 1.6 Insulin Glargine (Lantus) 18 unit SQ DAILY [facility] Last Admin: 12/29/19 09:32 Dose: 18 unit Documented by: Insulin Human Lispro (Humalog) 0 unit SQ [facility]; Protocol Last Admin: 12/29/19 07:25 Dose: Not Given Documented by: Metoprolol Tartrate (Lopressor) 5 mg IV Q2HP PRN PRN Reason: Tachyarrhythmias HR>110 Metoprolol Tartrate (Lopressor) 25 mg PO BID [facility] Last Admin: 12/29/19 09:31 Dose: 25 mg Documented by: Nitroglycerin (Nitrostat) 0.4 mg SL Q5M PRN PRN Reason: Chest Pain Ondansetron HCl (Zofran) 4 mg IV Q4HP PRN PRN Reason: Nausea And Vomiting Potassium Chloride (Kdur) 40 meq PO UD PRN PRN Reason: Potssium is 3-3.5 Potassium Chloride (Kdur) 40 meq PO UD PRN PRN Reason: Potassium < 3 Senna (Senokot) 2 tab PO DAILYP PRN PRN Reason: Constipation Sodium Chloride (Saline Flush) 10 ml IV Q8 [facility] Last Admin: 12/29/19 04:17 Dose: 10 ml Documented by: Thiamine HCl (Vitamin B1) 100 mg PO DAILY [facility] Last Admin: 12/29/19 09:29 Dose: 100 mg Documented by: Vitamin D (Vitamin D3) 2,000 unit PO DAILY [facility] Last Admin: 12/29/19 09:31 Dose: 2,000 unit Documented by: A/P Narrative A/P Narrative: 1. Acute hypoxic respiratory failure pulse ox oxygen therapy to keep sat > 92% He is now on 3-4 L 2. Pneumonia, covid 19 3. Covid positive Clinical pneumonia/copd Completed 5 day course of remdesivir Dexamethasone 6mg po x 10 days Eliquis 5mg bid Aspirin 81mg daily Vitam D, thiamine 4. A. fib RVR: -trop neg -Continue metoprolol 25mg bid -metorpolol 5mg iv prn -Eliquis 5mg bid 5. Hyponatremia: resolved 6. volume depletion: 7. CAD with history of CAB. HTN/HLD: discontinued lisinopril 5mg daily and decreased metoprolol to 25mg bid due to soft BP sometimes. BP improved 9. DM: 10. Electrolytes derangement P: -echo - EF 55-60% -TSH 1.31 -cont BB -f/u chemistry/sodium after volume repletion -cont ASA/Statin -basal and SSI -IS, monitor O2 -supplement of electrolytes, repeat them in am -ppx: Eliquis Time 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
[2019-12-30] MEDS: 0.9 % SODIUM CHLORIDE 10 ML SYRINGE IV SCH ×3 (04:13→22:25)
[2019-12-30 06:23] LABS: Basophils # (Auto) 0.04 K/mcL (0.00-0.20); Basophils % (Auto) 0.4 % (0.0-2.0); Eosinophils # (Auto) 0.02 K/mcL (0.00-0.70); Eosinophils % (Auto) 0.2 % (0.0-7.0); Hematocrit 32.1 % (41.0-55.0); Hemoglobin 11.3 g/dL (13.5-16.5); Lymphocytes # (Auto) 1.18 K/mcL (1.50-4.80); Lymphocytes % (Auto) 10.6 % (15.0-49.0); Mean Cell Volume 96.4 fL (80.0-100.0); Mean Corpuscular HGB Conc 35.2 g/dL (31.0-36.0); Mean Platelet Volume 8.8 fL (7.4-10.4); Monocytes # (Auto) 0.94 K/mcL (0.10-0.90); Monocytes % (Auto) 8.4 % (1.0-12.0); Neutrophils % (Auto) 80.4 % (38.0-78.0); Platelet Count 331 K/mcL (140-440); RBC 3.33 M/mcL (4.50-5.90); Red Cell Distribution Width 11.9 % (11.5-14.5); WBC 11.1 K/mcL (4.5-11.0)
[2019-12-30 08:00] LABS: ALT/SGPT 9 U/L (<40); AST/SGOT 14 U/L (<40); Albumin 2.9 gm/dL (3.2-5.2); Albumin/Globulin Ratio 0.8 (1.0-2.3); Alkaline Phosphatase 76 U/L (39-117); Blood Urea Nitrogen 23 mg/dL (8-23); Calcium 9.4 mg/dL (8.6-10.4); Carbon Dioxide 21 mmol/L (22-30); Chloride 99 mmol/L (96-108); Globulin 3.8 gm/dL (2.2-3.7); Glomerular Filtration Rate 83; Glucose 183 mg/dL (70-105)
[2019-12-30] MEDS: ATORVASTATIN 40 MG TABLET PO SCH (08:17)
[2019-12-30] MEDS: DOCUSATE SODIUM 100 MG CAPSULE PO SCH ×2 (08:17→22:25)
[2019-12-30] MEDS: ASPIRIN 81 MG TAB.CHEW PO SCH (08:17)
[2019-12-30] MEDS: THIAMINE 100 MG TABLET PO SCH (08:17)
[2019-12-30] MEDS: VITAMIN D3 1,000 UNIT TABLET PO SCH (08:18)
[2019-12-30] MEDS: APIXABAN 5 MG TABLET PO SCH ×2 (08:19→22:25)
[2019-12-30] MEDS: DEXAMETHASONE 4 MG TABLET PO SCH (08:20)
[2019-12-30] MEDS: METOPROLOL TARTRATE 25 MG TABLET PO SCH ×2 (08:20→22:25)
[2019-12-30] MEDS: INSULIN LISPRO 1 UNIT/0.01 ML UNIT SQ SCH ×5 (08:20→22:25)
[2019-12-30] MEDS: INSULIN GLARGINE, HUMAN 1 UNIT/0.01 ML SQ SCH (08:21)
--- NOTE | 2019-12-30 13:01 | Internal Med Progress Note ---
SUBJECTIVE Subjective Patient information: Note initiated : 12/30/19 at 12:58 pm Service Date, if different from initiated Date: [] Patient: Chemo Shields a 84 y/o M admitted on 12/23/19 for chest pain/cough. Chief Complaint: [] Mr. Shields is a 84 year old M pResents to the ED with palpitations and chest discomfort. Patient is Tuesday*developing a cough with mild shortness of breath and this morning had palpitation described as rapid and irregular and had some chest discomfort with it. The ED was found to have A. fib RVR and given diltiazem bolus with improvement. Chest discomfort resolved. Troponin unremarkable. Covid test was positive. On room air doing well. Found to be mildly hyponatremic. Some mild volume depletion likely. 12/23 Pt feels fine and does not have new complaints. NO overnight events. He is on 1L oxygen. But I would like to start remdesivir for him now considering his age and the fact that the earlier we start remdesivir the better. He has newly onset a fib. I would like to start him on anticoagulation with Eliquis. 12/24 Pt feels fine. Denies fever/chill or n/v. He is on RM with good saturation. Lab showed some electrolytes derangement and vitd insufficiency. 12/25 Pt does not have new complaints and feels fine. But he needs 2L. Yesterday he was on RM -1L. No overnight events. 12/26 Pt feels fine and does not have new complaints. He is on 0.5-1L via NC. His glucose went up to > 400 and WBC 11.7 today. He is on steroid. BP is soft sometimes. Discontinued home lisinopril 5mg daily and decreased metoprolol to 25mg daily. No overnight event. 12/27 No new complaints. He is now on 3-5L Blood glucose is not well controlled due to use of steroid. 12/28 No new complaints. He is now on 3-5L Blood glucose is relatively controlled. WBC 11.6, could be due to use of steroid 12/29 Pt feels fine and does not have new complaints. Denies n/v/d. He is on 2.5-3L via NC. No overnight acute events Review of Systems: Pertinent positives as above. Denies headache/fever/chills/nausea/vomiting/ abdominal pain/diarrhea. Many 10 point review of system reviewed negative Constitutional Vitals: Vital Signs Temp Pulse Resp BP Pulse Ox 97.8 F 72 18 122/69 91 12/30/19 08:33 12/30/19 08:33 12/30/19 08:33 12/30/19 08:33 12/30/19 08:33 Period Temp Pulse Resp BP Sys/Aranda Pulse Ox Last 24 Hr 97.1 F-98.3 F 63-72 16-18 103-142/59-70 90-93 Intake and Output 12/29/19 12/30/19 12/30/19 21:59 05:59 13:59 Intake Total 300 200 Output Total 225 700 Balance 75 -500 Weight 75.778 kg Intake & Output: Intake & Output 12/29/19 12/30/19 12/30/19 21:59 05:59 13:59 Intake Total 300 200 Output Total 225 700 Balance 75 -500 Weight 75.778 kg Intake: Oral 300 200 Output: Void Amount 225 700 Other: Meal Dinner Percent of Meal Consumed 100% Feeding Ability Independent Urine Appearance Clear Clear Urine Color Dark Yellow Straw Straw Urine Odor Normal Stool Size Large Stool Color Brown Stool Consistency Formed Additional findings Additional findings: General - No acute distress Eyes - PERRLA, EOM intact ENT no rhinorrhea, no noticeable or palpable swelling, no redness or rash around throat or on face Neck supple, no JVD, no thyromegaly Respiratory: Course BS (improving). Cardiovascular - RRR no m/r/g, GI - Normal bowel sounds, no distended, soft. Extremeties - No edema, cyanosis or clubbing Hemo/lymphatic/immune no lymphadenopathy Neurological Alert and oriented x 3, no focal neurological deficits. Psychiatry flat affect OBJ DATA Labs CBC & Chem 7: 12/30/19 05:14 12/30/19 05:14 Labs: Abnormal Lab Results 12/30/19 12/30/19 12/29/19 05:14 05:14 05:35 WBC 11.1 H RBC 3.33 L Hgb 11.3 L Hct 32.1 L Neut % (Auto) 80.4 H Lymph % (Auto) 10.6 L Lymph # (Auto) 1.18 L [place] # (Auto) 0.94 H Absolute Neutrophils 8.96 H Carbon Dioxide 21 L BUN 25 H Glucose 183 H 144 H Lactate Dehydrogenase Albumin 2.9 L Globulin 3.8 H Albumin/Globulin Ratio 0.8 L 0.9 L 12/29/19 12/28/19 05:35 07:00 WBC 11.6 H RBC 3.52 L Hgb 11.5 L Hct 33.4 L Neut % (Auto) 80.0 H Lymph % (Auto) 12.2 L Lymph # (Auto) 1.41 L [place] # (Auto) Absolute Neutrophils 9.27 H Carbon Dioxide BUN 31 H Glucose 150 H Lactate Dehydrogenase 237 H Albumin 2.9 L Globulin Albumin/Globulin Ratio 0.8 L Meds: Medications Acetaminophen (Tylenol) 650 mg PO Q6HP PRN PRN Reason: PAIN/FEVER > 101 Albuterol Sulfate (Ventolin) 1 puff INH Q4-6HP PRN PRN Reason: Shortness Of Breath Albuterol/Ipratropium (Duoneb) 3 ml NEB Q4HP PRN PRN Reason: Shortness Of Breath Apixaban (Eliquis) 5 mg PO BID [facility] Last Admin: 12/30/19 08:19 Dose: 5 mg Documented by: Aspirin (Aspirin) 81 mg PO DAILY [facility] Last Admin: 12/30/19 08:17 Dose: 81 mg Documented by: Atorvastatin Calcium (Lipitor) 40 mg PO DAILY [facility] Last Admin: 12/30/19 08:17 Dose: 40 mg Documented by: Dexamethasone (Decadron) 6 mg PO DAILY [facility] Last Admin: 12/30/19 08:20 Dose: 6 mg Documented by: Dextrose (Dextrose 50%) 0 ml IV UD PRN PRN Reason: Hypoglycemia Diagnostic Test (Pha) (Accu-Chek) 1 each FS ACHS [facility] Last Admin: 12/30/19 11:41 Dose: 1 each Documented by: Docusate Sodium (Colace) 100 mg PO BID [facility] Last Admin: 12/30/19 08:17 Dose: 100 mg Documented by: Ergocalciferol (Drisdol) 50,000 unit PO WEEKLY [facility] Glucose (Insta-Glucose) 15 gm PO PRN PRN PRN Reason: Hypoglycemia Potassium Chloride 40 meq/ (Dextrose) 520 mls @ 130 mls/hr IV UD PRN PRN Reason: Potassium < 3 Magnesium Sulfate (Magnesium Sulfate) 2 gm in 50 mls @ 50 mls/hr IV UD PRN PRN Reason: Magnesium </= 1.6 Insulin Glargine (Lantus) 18 unit SQ DAILY [facility] Last Admin: 12/30/19 08:21 Dose: 18 unit Documented by: Insulin Human Lispro (Humalog) 0 unit SQ ACHS [facility]; Protocol Last Admin: 12/30/19 12:21 Dose: 6 units Documented by: Metoprolol Tartrate (Lopressor) 5 mg IV Q2HP PRN PRN Reason: Tachyarrhythmias HR>110 Metoprolol Tartrate (Lopressor) 25 mg PO BID [facility] Last Admin: 12/30/19 08:20 Dose: 25 mg Documented by: Nitroglycerin (Nitrostat) 0.4 mg SL Q5M PRN PRN Reason: Chest Pain Ondansetron HCl (Zofran) 4 mg IV Q4HP PRN PRN Reason: Nausea And Vomiting Potassium Chloride (Kdur) 40 meq PO UD PRN PRN Reason: Potssium is 3-3.5 Potassium Chloride (Kdur) 40 meq PO UD PRN PRN Reason: Potassium < 3 Senna (Senokot) 2 tab PO DAILYP PRN PRN Reason: Constipation Sodium Chloride (Saline Flush) 10 ml IV Q8 [facility] Last Admin: 12/30/19 04:13 Dose: 10 ml Documented by: Thiamine HCl (Vitamin B1) 100 mg PO DAILY [facility] Last Admin: 12/30/19 08:17 Dose: 100 mg Documented by: Vitamin D (Vitamin D3) 2,000 unit PO DAILY [facility] Last Admin: 12/30/19 08:18 Dose: 2,000 unit Documented by: A/P Narrative A/P Narrative: 1. Acute hypoxic respiratory failure pulse ox oxygen therapy to keep sat > 92% He is now on 2.5-3 L 2. Pneumonia, covid 19 3. Covid positive Clinical pneumonia/copd Completed 5 day course of remdesivir Dexamethasone 6mg po x 10 days Eliquis 5mg bid Aspirin 81mg daily Vitam D, thiamine 4. A. fib RVR: -trop neg -Continue metoprolol 25mg bid -metorpolol 5mg iv prn -Eliquis 5mg bid 5. Hyponatremia: resolved 6. volume depletion: 7. CAD with history of CAB. HTN/HLD: discontinued lisinopril 5mg daily and decreased metoprolol to 25mg bid due to soft BP sometimes. BP improved 9. DM: 10. Electrolytes derangement P: -echo - EF 55-60% -TSH 1.31 -cont BB -f/u chemistry/sodium after volume repletion -cont ASA/Statin -basal and SSI -IS, monitor O2 -supplement of electrolytes, repeat them in am -ppx: Eliquis Time Spent With Patient Time: Total time spent is greater than 50% in coordination of care (as document ed) at patient's floor/unit and/or counseling patient:
--- NOTE | 2019-12-30 14:10 | Internal Med Progress Note ---
SUBJECTIVE Subjective Patient information: Note initiated : 12/30/19 at 2:05 pm Service Date, if different from initiated Date: [] Patient: Chemo Shields a 84 y/o M admitted on 12/23/19 for chest pain/cough. Chief Complaint: [] Interval history: Mr. Shields is a 84 year old M pResents to the ED with palpitations and chest discomfort. Patient is Tuesday*developing a cough with mild shortness of breath and this morning had palpitation described as rapid and irregular and had some chest discomfort with it. The ED was found to have A. fib RVR and given diltiazem bolus with improvement. Chest discomfort resolved. Troponin unremarkable. Covid test was positive. On room air doing well. Found to be mildly hyponatremic. Some mild volume depletion likely. 12/23 Pt feels fine and does not have new complaints. NO overnight events. He is on 1L oxygen. But I would like to start remdesivir for him now considering his age and the fact that the earlier we start remdesivir the better. He has newly onset a fib. I would like to start him on anticoagulation with Eliquis. 12/24 Pt feels fine. Denies fever/chill or n/v. He is on RM with good saturation. Lab showed some electrolytes derangement and vitd insufficiency. 12/25 Pt does not have new complaints and feels fine. But he needs 2L. Yesterday he was on RM -1L. No overnight events. 12/26 Pt feels fine and does not have new complaints. He is on 0.5-1L via NC. His glucose went up to > 400 and WBC 11.7 today. He is on steroid. BP is soft sometimes. Discontinued home lisinopril 5mg daily and decreased metoprolol to 25mg daily. No overnight event. 12/27 No new complaints. He is now on 3-5L Blood glucose is not well controlled due to use of steroid. 12/28 No new complaints. He is now on 3-5L Blood glucose is relatively controlled. WBC 11.6, could be due to use of steroid 12/29 Pt feels fine and does not have new complaints. Denies n/v/d. He is on 2.5-3L via NC. No overnight acute events 12/30 Constitutional Vitals: Vital Signs Temp Pulse Resp BP Pulse Ox 97.8 F 72 18 122/69 91 12/30/19 08:33 12/30/19 08:33 12/30/19 08:33 12/30/19 08:33 12/30/19 08:33 Period Temp Pulse Resp BP Sys/Aranda Pulse Ox Last 24 Hr 97.1 F-98.3 F 63-72 16-18 103-142/59-70 90-93 Intake and Output 12/30/19 12/30/19 12/30/19 05:59 13:59 21:59 Intake Total 200 Output Total 700 Balance -500 Intake & Output: Intake & Output 12/30/19 12/30/19 12/30/19 05:59 13:59 21:59 Intake Total 200 Output Total 700 Balance -500 Intake: Oral 200 Output: Void Amount 700 Other: Urine Appearance Clear Clear Urine Color Straw Straw Urine Odor Normal Stool Size Large Stool Color Brown Stool Consistency Formed Exam: General: Alert, Awake, No acute Distress Eyes/N/T: EOMI, Head/Neck: neck supple, CV: irreg irreg, No murmurs, Pulm: course b/l, no wheezing Abd: soft, nontender, +BS x4 Ext: no clubbing/cyanosis/edema Neuro: Alert, no focal deficits, moves all extremities, Skin: warm/dry OBJ DATA Labs CBC & Chem 7: 12/30/19 05:14 12/30/19 05:14 Labs: Abnormal Lab Results 12/30/19 12/30/19 12/29/19 05:14 05:14 05:35 WBC 11.1 H RBC 3.33 L Hgb 11.3 L Hct 32.1 L Neut % (Auto) 80.4 H Lymph % (Auto) 10.6 L Lymph # (Auto) 1.18 L [place] # (Auto) 0.94 H Absolute Neutrophils 8.96 H Carbon Dioxide 21 L BUN 25 H Glucose 183 H 144 H Lactate Dehydrogenase Albumin 2.9 L Globulin 3.8 H Albumin/Globulin Ratio 0.8 L 0.9 L 12/29/19 12/28/19 05:35 07:00 WBC 11.6 H RBC 3.52 L Hgb 11.5 L Hct 33.4 L Neut % (Auto) 80.0 H Lymph % (Auto) 12.2 L Lymph # (Auto) 1.41 L [place] # (Auto) Absolute Neutrophils 9.27 H Carbon Dioxide BUN 31 H Glucose 150 H Lactate Dehydrogenase 237 H Albumin 2.9 L Globulin Albumin/Globulin Ratio 0.8 L Meds: Medications Acetaminophen (Tylenol) 650 mg PO Q6HP PRN PRN Reason: PAIN/FEVER > 101 Albuterol Sulfate (Ventolin) 1 puff INH Q4-6HP PRN PRN Reason: Shortness Of Breath Albuterol/Ipratropium (Duoneb) 3 ml NEB Q4HP PRN PRN Reason: Shortness Of Breath Apixaban (Eliquis) 5 mg PO BID [facility] Last Admin: 12/30/19 08:19 Dose: 5 mg Documented by: Aspirin (Aspirin) 81 mg PO DAILY [facility] Last Admin: 12/30/19 08:17 Dose: 81 mg Documented by: Atorvastatin Calcium (Lipitor) 40 mg PO DAILY [facility] Last Admin: 12/30/19 08:17 Dose: 40 mg Documented by: Dexamethasone (Decadron) 6 mg PO DAILY [facility] Last Admin: 12/30/19 08:20 Dose: 6 mg Documented by: Dextrose (Dextrose 50%) 0 ml IV UD PRN PRN Reason: Hypoglycemia Diagnostic Test (Pha) (Accu-Chek) 1 each FS ACHS [facility] Last Admin: 12/30/19 11:41 Dose: 1 each Documented by: Docusate Sodium (Colace) 100 mg PO BID [facility] Last Admin: 12/30/19 08:17 Dose: 100 mg Documented by: Ergocalciferol (Drisdol) 50,000 unit PO WEEKLY [facility] Glucose (Insta-Glucose) 15 gm PO PRN PRN PRN Reason: Hypoglycemia Potassium Chloride 40 meq/ (Dextrose) 520 mls @ 130 mls/hr IV UD PRN PRN Reason: Potassium < 3 Magnesium Sulfate (Magnesium Sulfate) 2 gm in 50 mls @ 50 mls/hr IV UD PRN PRN Reason: Magnesium </= 1.6 Insulin Glargine (Lantus) 18 unit SQ DAILY [facility] Last Admin: 12/30/19 08:21 Dose: 18 unit Documented by: Insulin Human Lispro (Humalog) 0 unit SQ ACHS [facility]; Protocol Last Admin: 12/30/19 12:21 Dose: 6 units Documented by: Metoprolol Tartrate (Lopressor) 5 mg IV Q2HP PRN PRN Reason: Tachyarrhythmias HR>110 Metoprolol Tartrate (Lopressor) 25 mg PO BID [facility] Last Admin: 12/30/19 08:20 Dose: 25 mg Documented by: Nitroglycerin (Nitrostat) 0.4 mg SL Q5M PRN PRN Reason: Chest Pain Ondansetron HCl (Zofran) 4 mg IV Q4HP PRN PRN Reason: Nausea And Vomiting Potassium Chloride (Kdur) 40 meq PO UD PRN PRN Reason: Potssium is 3-3.5 Potassium Chloride (Kdur) 40 meq PO UD PRN PRN Reason: Potassium < 3 Senna (Senokot) 2 tab PO DAILYP PRN PRN Reason: Constipation Sodium Chloride (Saline Flush) 10 ml IV Q8 [facility] Last Admin: 12/30/19 04:13 Dose: 10 ml Documented by: Thiamine HCl (Vitamin B1) 100 mg PO DAILY [facility] Last Admin: 12/30/19 08:17 Dose: 100 mg Documented by: Vitamin D (Vitamin D3) 2,000 unit PO DAILY [facility] Last Admin: 12/30/19 08:18 Dose: 2,000 unit Documented by: A/P Narrative A/P Narrative: A: *COVID PNA: -no O2 needs at this time -cxr unremarkable *Acute hypoxic respiratory failure: -on 2-3L *AFib RVR: stable -trop neg -echo EF 55-60, TSH wnl *Hyponatremia: resolved *volume depletion: resolved *CAD with history of CABG: *HTN/HLD: *DM: P: -completed remdesivir, cont dexamethasone -echo, tsh/mg -cont BB -discontinued lisinopril 5mg daily and decreased metoprolol to 25mg bid due to soft BP sometimes -cont ASA/Statin -basal and SSI -IS, monitor O2 -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
[2019-12-31] MEDS: 0.9 % SODIUM CHLORIDE 10 ML SYRINGE IV SCH ×3 (04:42→22:05)
--- NOTE | 2019-12-31 07:20 | Internal Med Progress Note ---
SUBJECTIVE Subjective Patient information: Note initiated : 12/31/19 at 7:16 am Service Date, if different from initiated Date: [] Patient: Chemo Shields a 84 y/o M admitted on 12/23/19 for chest pain/cough. Chief Complaint: [] Interval history: Mr. Shields is a 84 year old M pResents to the ED with palpitations and chest discomfort. Patient is Tuesday*developing a cough with mild shortness of breath and this morning had palpitation described as rapid and irregular and had some chest discomfort with it. The ED was found to have A. fib RVR and given diltiazem bolus with improvement. Chest discomfort resolved. Troponin unremarkable. Covid test was positive. On room air doing well. Found to be mildly hyponatremic. Some mild volume depletion likely. 12/23 Pt feels fine and does not have new complaints. NO overnight events. He is on 1L oxygen. But I would like to start remdesivir for him now considering his age and the fact that the earlier we start remdesivir the better. He has newly onset a fib. I would like to start him on anticoagulation with Eliquis. 12/24 Pt feels fine. Denies fever/chill or n/v. He is on RM with good saturation. Lab showed some electrolytes derangement and vitd insufficiency. 12/25 Pt does not have new complaints and feels fine. But he needs 2L. Yesterday he was on RM -1L. No overnight events. 12/26 Pt feels fine and does not have new complaints. He is on 0.5-1L via NC. His glucose went up to > 400 and WBC 11.7 today. He is on steroid. BP is soft sometimes. Discontinued home lisinopril 5mg daily and decreased metoprolol to 25mg daily. No overnight event. 12/27 No new complaints. He is now on 3-5L Blood glucose is not well controlled due to use of steroid. 12/28 No new complaints. He is now on 3-5L Blood glucose is relatively controlled. WBC 11.6, could be due to use of steroid 12/29 Pt feels fine and does not have new complaints. Denies n/v/d. He is on 2.5-3L via NC. No overnight acute events 12/30 She feeling better today. He was down to 1/2 L of oxygen yesterday. But this morning bumped up to 3 L for day shift. He has occasional cough. And again he feels the shortness of breath is improved. No new complaints. Review of Systems: denies headache/fever/chills/nausea/vomiting/chest or abdominal pain/diarrhea. Otherwise see above. Constitutional Vitals: Vital Signs Temp Pulse Resp BP Pulse Ox 97.5 F 64 16 118/60 91 12/31/19 04:00 12/31/19 04:00 12/31/19 04:00 12/31/19 04:00 12/31/19 04:00 Period Temp Pulse Resp BP Sys/Aranda Pulse Ox Last 24 Hr 97 F-98 F 64-79 16-18 118-144/54-78 89-94 Intake and Output 12/30/19 12/31/19 12/31/19 21:59 05:59 13:59 Intake Total 540 Output Total 500 700 Balance -500 -160 Weight 75.325 kg Intake & Output: Intake & Output 12/30/19 12/31/19 12/31/19 21:59 05:59 13:59 Intake Total 540 Output Total 500 700 Balance -500 -160 Weight 75.325 kg Intake: Nourishment/Supplement quantity 240 (ml) Oral 300 Output: Void Amount 500 700 Other: Meal Dinner Nourishment/Supplement Percent of Meal Consumed 100% Feeding Ability Assist with Tray Set Up Nourishment/Supplement name reji Urine Appearance Clear Clear Urine Color Straw Straw Exam: General: Alert, Awake, No acute Distress Eyes/N/T: EOMI, Head/Neck: neck supple, CV: regular at this time, No murmurs, Pulm:mild rhonchi R>L, no wheezing Abd: soft, nontender, +BS x4 Ext: no clubbing/cyanosis/edema Neuro: Alert, no focal deficits, moves all extremities, Skin: warm/dry OBJ DATA Labs CBC & Chem 7: 12/30/19 05:14 12/30/19 05:14 Labs: Abnormal Lab Results 12/30/19 12/30/19 12/29/19 05:14 05:14 05:35 WBC 11.1 H RBC 3.33 L Hgb 11.3 L Hct 32.1 L Neut % (Auto) 80.4 H Lymph % (Auto) 10.6 L Lymph # (Auto) 1.18 L Stephenson # (Auto) 0.94 H Absolute Neutrophils 8.96 H Carbon Dioxide 21 L BUN 25 H Glucose 183 H 144 H Lactate Dehydrogenase Albumin 2.9 L Globulin 3.8 H Albumin/Globulin Ratio 0.8 L 0.9 L 12/29/19 12/28/19 05:35 07:00 WBC 11.6 H RBC 3.52 L Hgb 11.5 L Hct 33.4 L Neut % (Auto) 80.0 H Lymph % (Auto) 12.2 L Lymph # (Auto) 1.41 L Stephenson # (Auto) Absolute Neutrophils 9.27 H Carbon Dioxide BUN 31 H Glucose 150 H Lactate Dehydrogenase 237 H Albumin 2.9 L Globulin Albumin/Globulin Ratio 0.8 L Meds: Medications Acetaminophen (Tylenol) 650 mg PO Q6HP PRN PRN Reason: PAIN/FEVER > 101 Albuterol Sulfate (Ventolin) 1 puff INH Q4-6HP PRN PRN Reason: Shortness Of Breath Albuterol/Ipratropium (Duoneb) 3 ml NEB Q4HP PRN PRN Reason: Shortness Of Breath Apixaban (Eliquis) 5 mg PO BID [facility] Last Admin: 12/30/19 22:25 Dose: 5 mg Documented by: Aspirin (Aspirin) 81 mg PO DAILY [facility] Last Admin: 12/30/19 08:17 Dose: 81 mg Documented by: Atorvastatin Calcium (Lipitor) 40 mg PO DAILY [facility] Last Admin: 12/30/19 08:17 Dose: 40 mg Documented by: Dexamethasone (Decadron) 6 mg PO DAILY [facility] Last Admin: 12/30/19 08:20 Dose: 6 mg Documented by: Dextrose (Dextrose 50%) 0 ml IV UD PRN PRN Reason: Hypoglycemia Diagnostic Test (Pha) (Accu-Chek) 1 each FS ACHS [facility] Last Admin: 12/30/19 22:25 Dose: 1 each Documented by: Docusate Sodium (Colace) 100 mg PO BID [facility] Last Admin: 12/30/19 22:25 Dose: 100 mg Documented by: Ergocalciferol (Drisdol) 50,000 unit PO WEEKLY [facility] Glucose (Insta-Glucose) 15 gm PO PRN PRN PRN Reason: Hypoglycemia Potassium Chloride 40 meq/ (Dextrose) 520 mls @ 130 mls/hr IV UD PRN PRN Reason: Potassium < 3 Magnesium Sulfate (Magnesium Sulfate) 2 gm in 50 mls @ 50 mls/hr IV UD PRN PRN Reason: Magnesium </= 1.6 Insulin Glargine (Lantus) 18 unit SQ DAILY [facility] Last Admin: 12/30/19 08:21 Dose: 18 unit Documented by: Insulin Human Lispro (Humalog) 0 unit SQ ACHS [facility]; Protocol Last Admin: 12/30/19 22:25 Dose: 8 units Documented by: Metoprolol Tartrate (Lopressor) 5 mg IV Q2HP PRN PRN Reason: Tachyarrhythmias HR>110 Metoprolol Tartrate (Lopressor) 25 mg PO BID [facility] Last Admin: 12/30/19 22:25 Dose: 25 mg Documented by: Nitroglycerin (Nitrostat) 0.4 mg SL Q5M PRN PRN Reason: Chest Pain Ondansetron HCl (Zofran) 4 mg IV Q4HP PRN PRN Reason: Nausea And Vomiting Potassium Chloride (Kdur) 40 meq PO UD PRN PRN Reason: Potssium is 3-3.5 Potassium Chloride (Kdur) 40 meq PO UD PRN PRN Reason: Potassium < 3 Senna (Senokot) 2 tab PO DAILYP PRN PRN Reason: Constipation Sodium Chloride (Saline Flush) 10 ml IV Q8 [facility] Last Admin: 12/31/19 04:42 Dose: 10 ml Documented by: Thiamine HCl (Vitamin B1) 100 mg PO DAILY [facility] Last Admin: 12/30/19 08:17 Dose: 100 mg Documented by: Vitamin D (Vitamin D3) 2,000 unit PO DAILY [facility] Last Admin: 12/30/19 08:18 Dose: 2,000 unit Documented by: A/P Narrative A/P Narrative: A: *COVID PNA: *Acute hypoxic respiratory failure: -down to 1.5L yesterday but up to 3L at start of day shift *AFib RVR: converted -trop neg -echo EF 55-60, TSH wnl *Hyponatremia: resolved *volume depletion: resolved *CAD with history of CABG: *HTN/HLD: *DM: A1c 8.4 P: -completed remdesivir, cont dexamethasone -IS, monitor O2 and wean as able -daily prone positioning -cont BB -discontinued lisinopril 5mg daily and decreased metoprolol to 25mg bid due to soft BP sometimes -cont ASA/Statin -basal and SSI -pt/ot -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
[2019-12-31] MEDS: INSULIN LISPRO 1 UNIT/0.01 ML UNIT SQ SCH ×5 (08:10→22:04)
[2019-12-31] MEDS: DOCUSATE SODIUM 100 MG CAPSULE PO SCH ×2 (08:11→22:05)
[2019-12-31] MEDS: DEXAMETHASONE 4 MG TABLET PO SCH (08:11)
[2019-12-31] MEDS: ATORVASTATIN 40 MG TABLET PO SCH (08:11)
[2019-12-31] MEDS: ASPIRIN 81 MG TAB.CHEW PO SCH (08:11)
[2019-12-31] MEDS: VITAMIN D3 1,000 UNIT TABLET PO SCH (08:11)
[2019-12-31] MEDS: INSULIN GLARGINE, HUMAN 1 UNIT/0.01 ML SQ SCH (08:12)
[2019-12-31] MEDS: METOPROLOL TARTRATE 25 MG TABLET PO SCH ×2 (08:12→22:05)
[2019-12-31] MEDS: APIXABAN 5 MG TABLET PO SCH ×2 (08:12→22:05)
[2019-12-31] MEDS: THIAMINE 100 MG TABLET PO SCH (08:12)
--- NOTE | 2019-12-31 10:11 | Discharge Summary ---
Discharge Provider Provider Patient information: Note initiated : 12/31/19 at 10:06 am Service Date, if different from initiated Date: [] Patient: Chemo Shields 84 y/o M admitted on 12/23/19 for chest pain/cough. Chief Complaint: [] Date of admission: 12/23/19 12:15 Discharge date: 01/03/20 Primary care physician: Ghada Ivory Consults: 12/23/19 Consult to Physician [CONS] Stat Comment: Consulting Provider: Anuj Childress Reason For Exam: Physician to Consult Discharge Meds Discharge Medications Home Medications atorvastatin 20 mg PO HS 03/05/15 [History Confirmed 12/27/19 Last Taken Unknown] metformin 1,000 mg PO BIDCC 03/05/15 [History Confirmed 12/23/19 Last Taken 12/23/19 07:00] insulin aspart U-100 100 unit/mL subcutaneous cartridge See Rx Instructions SUB- Q .COMPLEX 06/28/19 [History Confirmed 12/05/19 Last Taken Unknown] simvastatin 10 mg tablet 10 mg PO DAILY 06/28/19 [History Confirmed 12/23/19 Last Taken 12/22/19 21:00] Lantus Solostar U-100 Insulin 8 unit SUBCUT QAM 12/23/19 [History Confirmed 12/23/19 Last Taken 12/23/19 07:00] apixaban [Eliquis] 5 mg PO BID #60 tab 12/31/19 [Rx Last Taken Unknown] metoprolol tartrate 25 mg PO BID #60 tab 12/31/19 [Rx Last Taken Unknown] COURSE Hospital Course Hospital course: Mr. Shields is a 84 year old M pResents to the ED with palpitations and chest discomfort. Patient is Tuesday*developing a cough with mild shortness of breath and this morning had palpitation described as rapid and irregular and had some chest discomfort with it. The ED was found to have A. fib RVR and given diltiazem bolus with improvement. Chest discomfort resolved. Troponin unremarkable. Covid test was positive. On room air doing well. Found to be mildly hyponatremic. Some mild volume depletion likely. 12/23 Pt feels fine and does not have new complaints. NO overnight events. He is on 1L oxygen. But I would like to start remdesivir for him now considering his age and the fact that the earlier we start remdesivir the better. He has newly onset a fib. I would like to start him on anticoagulation with Eliquis. 12/24 Pt feels fine. Denies fever/chill or n/v. He is on RM with good saturation. Lab showed some electrolytes derangement and vitd insufficiency. 12/25 Pt does not have new complaints and feels fine. But he needs 2L. Yesterday he was on RM -1L. No overnight events. 12/26 Pt feels fine and does not have new complaints. He is on 0.5-1L via NC. His glucose went up to > 400 and WBC 11.7 today. He is on steroid. BP is soft sometimes. Discontinued home lisinopril 5mg daily and decreased metoprolol to 25mg daily. No overnight event. 12/27 No new complaints. He is now on 3-5L Blood glucose is not well controlled due to use of steroid. 12/28 No new complaints. He is now on 3-5L Blood glucose is relatively controlled. WBC 11.6, could be due to use of steroid 12/29 Pt feels fine and does not have new complaints. Denies n/v/d. He is on 2.5-3L via NC. No overnight acute events 12/30 She feeling better today. He was down to 1/2 L of oxygen yesterday. But this morning bumped up to 3 L for day shift. He has occasional cough. And again he feels the shortness of breath is improved. No new complaints. echo with good EF. RV systolic fxn reduced mild-mod. 12/31 Patient feeling better again today. He is down to 1 L of oxygen overnight and temporarily on 1/2 L. Had a bump up this morning to 3. Says his shortness of breath continues to improve. Discussed with him possibility of a short stay to rehab to gain strength before transitioning home. 01/01 continues to feel better. Occasional cough. Oxygen at 1 L. No increased need this morning. 01/02 No overnight events or new complaints. Patient on 1 L oxygen with sats 94-95%. stAble for discharge A: *COVID PNA: *Acute hypoxic respiratory failure: *AFib RVR: converted -trop neg -echo EF 55-60, TSH wnl *Hyponatremia: resolved *volume depletion: resolved *CAD with history of CABG: *HTN/HLD: *DM: A1c 8.4 Discharge diagnosis: Covid pneumonia acute hypoxic respiratory failure A. fib RVR Secondary discharge diagnosis: Following completion CAD hypertension diabetes Time Spent with Patient Time attestation: Total time spent providing and/or coordinating discharge services: Time spent: Greater than 30 minutes EXAM Constitutional Vitals: Temp Pulse Resp BP Pulse Ox 97 F 64 20 103/66 90 12/31/19 07:26 12/31/19 04:00 12/31/19 07:26 12/31/19 07:26 12/31/19 07:26 Discharge Plan Patient/Caregiver Discharge Instructions Activity: increase activity as tolerated Diet: Consistent Carbohydrate Instructions: A-fib (Atrial Fibrillation) (GEN), Hyponatremia (DC), COVID-19 (Coronavirus Disease 2019)(GEN) Activity Restrictions/Additional Instructions: Increase activity as tolerated. May resume consistent carbohydrate diet as tolerated. Call your physician for sustained fever greater than 100.5, increase in weakness, increase shortness of breath, or any questions/concerns. This discharge packet is provided to you to help keep you informed about your care. We want to ensure you get everything you need when you go home. You will also be receiving a call from us in a few days to follow up with you and see how you are doing since your discharge. This gives us a chance to listen to any concerns you maybe experiencing since you were discharged or any additional needs you may have, as well as providing us feedback on your care experience. We strive to always provide excellent care and thank you for your feedback and for choosing [facility]. Prescriptions: New metoprolol tartrate 25 mg Tablet 25 mg PO BID Qty: 60 RF: 0 Eliquis 5 mg Tablet 5 mg PO BID Qty: 60 RF: 0 Continued simvastatin 10 mg tablet 10 mg PO DAILY RF: 0 insulin aspart U-100 100 unit/mL cartridge See Rx Instructions SUB-Q .COMPLEX RF: 0 metformin 500 MG tablet 1,000 mg PO BIDCC RF: 0 atorvastatin 20 MG tablet 20 mg PO HS RF: 0 Lantus Solostar U-100 Insulin 100 unit/mL (3 mL) insulin pen 8 unit SUBCUT QAM RF: 0 Discontinued aspirin [Lite Coat Aspirin] 325 MG tablet 325 mg PO DAILY RF: 0 metoprolol tartrate 50 MG tablet 25 mg PO BID RF: 0 lisinopril 5 MG tablet 5 mg PO DAILY RF: 0 Follow Up Plan Follow up with: Ghada Ivory MD [Primary Care Provider] - (Please call and schedule a hospital follow up appointment.) Patient Disposition: Xfer SNF Prognosis: Fair Rehab Potential: Fair I certify that the patient requires SNF services: Yes Overall status at discharge: patient is progressing back to baseline Discharge Orders: Discharge Order (Routine); Ordered 01/03/20 Ordered By: Anuj Childress
[2019-12-31] MEDS: ZINC SULFATE 50 MG CAPSULE PO SCH (16:49)
[2020-01-01] MEDS: SENNOSIDES 1 TABLET PO PRN ×2 (00:18→19:37)
[2020-01-01] MEDS: INSULIN LISPRO 1 UNIT/0.01 ML UNIT SQ SCH ×9 (00:24→23:38)
[2020-01-01] MEDS: 0.9 % SODIUM CHLORIDE 10 ML SYRINGE IV SCH ×4 (04:35→20:02)
--- NOTE | 2020-01-01 07:26 | Internal Med Progress Note ---
SUBJECTIVE Subjective Patient information: Note initiated : 01/01/20 at 7:24 am Service Date, if different from initiated Date: [] Patient: Chemo Shields a 84 y/o M admitted on 12/23/19 for chest pain/cough. Chief Complaint: [] Interval history: Mr. Shields is a 84 year old M pResents to the ED with palpitations and chest discomfort. Patient is Tuesday*developing a cough with mild shortness of breath and this morning had palpitation described as rapid and irregular and had some chest discomfort with it. The ED was found to have A. fib RVR and given diltiazem bolus with improvement. Chest discomfort resolved. Troponin unremarkable. Covid test was positive. On room air doing well. Found to be mildly hyponatremic. Some mild volume depletion likely. 12/23 Pt feels fine and does not have new complaints. NO overnight events. He is on 1L oxygen. But I would like to start remdesivir for him now considering his age and the fact that the earlier we start remdesivir the better. He has newly onset a fib. I would like to start him on anticoagulation with Eliquis. 12/24 Pt feels fine. Denies fever/chill or n/v. He is on RM with good saturation. Lab showed some electrolytes derangement and vitd insufficiency. 12/25 Pt does not have new complaints and feels fine. But he needs 2L. Yesterday he was on RM -1L. No overnight events. 12/26 Pt feels fine and does not have new complaints. He is on 0.5-1L via NC. His glucose went up to > 400 and WBC 11.7 today. He is on steroid. BP is soft sometimes. Discontinued home lisinopril 5mg daily and decreased metoprolol to 25mg daily. No overnight event. 12/27 No new complaints. He is now on 3-5L Blood glucose is not well controlled due to use of steroid. 12/28 No new complaints. He is now on 3-5L Blood glucose is relatively controlled. WBC 11.6, could be due to use of steroid 12/29 Pt feels fine and does not have new complaints. Denies n/v/d. He is on 2.5-3L via NC. No overnight acute events 12/30 She feeling better today. He was down to 1/2 L of oxygen yesterday. But this morning bumped up to 3 L for day shift. He has occasional cough. And again he feels the shortness of breath is improved. No new complaints. 12/31 Patient feeling better again today. He is down to 1 L of oxygen overnight and temporarily on 1/2 L. Had a bump up this morning to 3. Says his shortness of breath continues to improve. Discussed with him possibility of a short stay to rehab to gain strength before transitioning home. Review of Systems: denies headache/fever/chills/nausea/vomiting/chest or abdominal pain/diarrhea. Otherwise see above. Constitutional Vitals: Vital Signs Temp Pulse Resp BP Pulse Ox 97.8 F 63 16 127/62 90 01/01/20 06:59 01/01/20 06:59 01/01/20 06:59 01/01/20 06:59 01/01/20 06:59 Period Temp Pulse Resp BP Sys/Aranda Pulse Ox Last 24 Hr 97 F-97.8 F 59-84 14-20 103-141/57-80 86-94 Intake and Output 12/31/19 01/01/20 01/01/20 21:59 05:59 13:59 Intake Total 500 Output Total 425 301 Balance -425 199 Weight 75.325 kg 74.503 kg Intake & Output: Intake & Output 12/31/19 01/01/20 01/01/20 21:59 05:59 13:59 Intake Total 500 Output Total 425 301 Balance -425 199 Weight 75.325 kg 74.503 kg Intake: Oral 500 Output: Void Amount 425 300 # of times incontinent of urine 1 Other: Meal Dinner Percent of Meal Consumed 100% Feeding Ability Independent Urine Appearance Clear Clear Urine Color Bright Yellow Bright Yellow Urine Odor Normal Normal # Voids 1 Exam: General: Alert, Awake, No acute Distress Eyes/N/T: EOMI, Head/Neck: neck supple, CV: regular at this time, No murmurs, Pulm:mild rhonchi/rales R>L, no wheezing Abd: soft, nontender, +BS x4 Ext: no clubbing/cyanosis/edema Neuro: Alert, no focal deficits, moves all extremities, Skin: warm/dry OBJ DATA Labs CBC & Chem 7: 12/30/19 05:14 12/30/19 05:14 Labs: Abnormal Lab Results 12/30/19 12/30/19 12/29/19 05:14 05:14 05:35 WBC 11.1 H RBC 3.33 L Hgb 11.3 L Hct 32.1 L Neut % (Auto) 80.4 H Lymph % (Auto) 10.6 L Lymph # (Auto) 1.18 L Candler # (Auto) 0.94 H Absolute Neutrophils 8.96 H Carbon Dioxide 21 L BUN 25 H Glucose 183 H 144 H Albumin 2.9 L Globulin 3.8 H Albumin/Globulin Ratio 0.8 L 0.9 L 12/29/19 05:35 WBC 11.6 H RBC 3.52 L Hgb 11.5 L Hct 33.4 L Neut % (Auto) 80.0 H Lymph % (Auto) 12.2 L Lymph # (Auto) 1.41 L Candler # (Auto) Absolute Neutrophils 9.27 H Carbon Dioxide BUN Glucose Albumin Globulin Albumin/Globulin Ratio Meds: Medications Acetaminophen (Tylenol) 650 mg PO Q6HP PRN PRN Reason: PAIN/FEVER > 101 Albuterol Sulfate (Ventolin) 1 puff INH Q4-6HP PRN PRN Reason: Shortness Of Breath Albuterol/Ipratropium (Duoneb) 3 ml NEB Q4HP PRN PRN Reason: Shortness Of Breath Apixaban (Eliquis) 5 mg PO BID [facility] Last Admin: 12/31/19 22:05 Dose: 5 mg Documented by: Ascorbic Acid (Vitamin C) 1,000 mg PO DAILY [facility] Aspirin (Aspirin) 81 mg PO DAILY [facility] Last Admin: 12/31/19 08:11 Dose: 81 mg Documented by: Atorvastatin Calcium (Lipitor) 40 mg PO DAILY [facility] Last Admin: 12/31/19 08:11 Dose: 40 mg Documented by: Dexamethasone (Decadron) 6 mg PO DAILY [facility] Last Admin: 12/31/19 08:11 Dose: 6 mg Documented by: Dextrose (Dextrose 50%) 0 ml IV UD PRN PRN Reason: Hypoglycemia Diagnostic Test (Pha) (Accu-Chek) 1 each FS Q4 [facility] Last Admin: 01/01/20 04:35 Dose: 1 each Documented by: Docusate Sodium (Colace) 100 mg PO BID [facility] Last Admin: 12/31/19 22:05 Dose: 100 mg Documented by: Ergocalciferol (Drisdol) 50,000 unit PO WEEKLY [facility] Glucose (Insta-Glucose) 15 gm PO PRN PRN PRN Reason: Hypoglycemia Potassium Chloride 40 meq/ (Dextrose) 520 mls @ 130 mls/hr IV UD PRN PRN Reason: Potassium < 3 Magnesium Sulfate (Magnesium Sulfate) 2 gm in 50 mls @ 50 mls/hr IV UD PRN PRN Reason: Magnesium </= 1.6 Insulin Glargine (Lantus) 20 unit SQ DAILY [facility] Last Admin: 12/31/19 08:12 Dose: 20 unit Documented by: Insulin Human Lispro (Humalog) 0 unit SQ Q4 [facility]; Protocol Last Admin: 01/01/20 04:35 Dose: Not Given Documented by: Metoprolol Tartrate (Lopressor) 5 mg IV Q2HP PRN PRN Reason: Tachyarrhythmias HR>110 Metoprolol Tartrate (Lopressor) 25 mg PO BID [facility] Last Admin: 12/31/19 22:05 Dose: 25 mg Documented by: Nitroglycerin (Nitrostat) 0.4 mg SL Q5M PRN PRN Reason: Chest Pain Ondansetron HCl (Zofran) 4 mg IV Q4HP PRN PRN Reason: Nausea And Vomiting Potassium Chloride (Kdur) 40 meq PO UD PRN PRN Reason: Potssium is 3-3.5 Potassium Chloride (Kdur) 40 meq PO UD PRN PRN Reason: Potassium < 3 Senna (Senokot) 2 tab PO DAILYP PRN PRN Reason: Constipation Last Admin: 01/01/20 00:18 Dose: 2 tab Documented by: Sodium Chloride (Saline Flush) 10 ml IV Q8 [facility] Last Admin: 01/01/20 04:35 Dose: 10 ml Documented by: Thiamine HCl (Vitamin B1) 100 mg PO DAILY [facility] Last Admin: 12/31/19 08:12 Dose: 100 mg Documented by: Vitamin D (Vitamin D3) 2,000 unit PO DAILY [facility] Last Admin: 12/31/19 08:11 Dose: 2,000 unit Documented by: Zinc Sulfate (Zinc) 50 mg PO DAILY [facility] Last Admin: 12/31/19 16:49 Dose: 50 mg Documented by: A/P Narrative A/P Narrative: A: *COVID PNA: *Acute hypoxic respiratory failure: -down to 0.5L yesterday evening, but up to 3L this morning (common for him to have increased need in morning) *AFib RVR: converted -trop neg -echo EF 55-60, TSH wnl *Hyponatremia: resolved *volume depletion: resolved *CAD with history of CABG: *HTN/HLD: *DM: A1c 8.4 P: -completed remdesivir, cont dexamethasone -IS, monitor O2 and wean as able -daily prone positioning -cont BB -discontinued lisinopril 5mg daily and decreased metoprolol to 25mg bid due to soft BP sometimes -cont ASA/Statin -basal and SSI -pt/ot -CM for placement -ppx: eliquis 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
[2020-01-01] MEDS: ASCORBIC ACID 500 MG TABLET PO SCH (07:43)
[2020-01-01] MEDS: ZINC SULFATE 50 MG CAPSULE PO SCH (07:43)
[2020-01-01] MEDS: THIAMINE 100 MG TABLET PO SCH (07:43)
[2020-01-01] MEDS: ATORVASTATIN 40 MG TABLET PO SCH (07:43)
[2020-01-01] MEDS: APIXABAN 5 MG TABLET PO SCH ×2 (07:43→19:37)
[2020-01-01] MEDS: DOCUSATE SODIUM 100 MG CAPSULE PO SCH ×2 (07:43→19:37)
[2020-01-01] MEDS: ASPIRIN 81 MG TAB.CHEW PO SCH (07:43)
[2020-01-01] MEDS: METOPROLOL TARTRATE 25 MG TABLET PO SCH ×2 (07:43→19:37)
[2020-01-01] MEDS: DEXAMETHASONE 4 MG TABLET PO SCH (07:43)
[2020-01-01] MEDS: VITAMIN D3 1,000 UNIT TABLET PO SCH (07:43)
[2020-01-01] MEDS: INSULIN GLARGINE, HUMAN 1 UNIT/0.01 ML SQ SCH (07:44)
[2020-01-02] MEDS: 0.9 % SODIUM CHLORIDE 10 ML SYRINGE IV SCH ×3 (04:01→20:24)
[2020-01-02] MEDS: INSULIN LISPRO 1 UNIT/0.01 ML UNIT SQ SCH ×6 (04:38→22:52)
--- NOTE | 2020-01-02 07:11 | Internal Med Progress Note ---
SUBJECTIVE Subjective Patient information: Note initiated : 01/02/20 at 7:08 am Service Date, if different from initiated Date: [] Patient: Chemo Shields a 84 y/o M admitted on 12/23/19 for chest pain/cough. Chief Complaint: [] Interval history: Mr. Shields is a 84 year old M pResents to the ED with palpitations and chest discomfort. Patient is Tuesday*developing a cough with mild shortness of breath and this morning had palpitation described as rapid and irregular and had some chest discomfort with it. The ED was found to have A. fib RVR and given diltiazem bolus with improvement. Chest discomfort resolved. Troponin unremarkable. Covid test was positive. On room air doing well. Found to be mildly hyponatremic. Some mild volume depletion likely. 12/23 Pt feels fine and does not have new complaints. NO overnight events. He is on 1L oxygen. But I would like to start remdesivir for him now considering his age and the fact that the earlier we start remdesivir the better. He has newly onset a fib. I would like to start him on anticoagulation with Eliquis. 12/24 Pt feels fine. Denies fever/chill or n/v. He is on RM with good saturation. Lab showed some electrolytes derangement and vitd insufficiency. 12/25 Pt does not have new complaints and feels fine. But he needs 2L. Yesterday he was on RM -1L. No overnight events. 12/26 Pt feels fine and does not have new complaints. He is on 0.5-1L via NC. His glucose went up to > 400 and WBC 11.7 today. He is on steroid. BP is soft sometimes. Discontinued home lisinopril 5mg daily and decreased metoprolol to 25mg daily. No overnight event. 12/27 No new complaints. He is now on 3-5L Blood glucose is not well controlled due to use of steroid. 12/28 No new complaints. He is now on 3-5L Blood glucose is relatively controlled. WBC 11.6, could be due to use of steroid 12/29 Pt feels fine and does not have new complaints. Denies n/v/d. He is on 2.5-3L via NC. No overnight acute events 12/30 She feeling better today. He was down to 1/2 L of oxygen yesterday. But this morning bumped up to 3 L for day shift. He has occasional cough. And again he feels the shortness of breath is improved. No new complaints. 12/31 Patient feeling better again today. He is down to 1 L of oxygen overnight and temporarily on 1/2 L. Had a bump up this morning to 3. Says his shortness of breath continues to improve. Discussed with him possibility of a short stay to rehab to gain strength before transitioning home. 01/01 Tends to feel better. Occasional cough. Oxygen at 1 L. No increased need this morning. Review of Systems: denies headache/fever/chills/nausea/vomiting/chest or abdominal pain/diarrhea. Otherwise see above. Constitutional Vitals: Vital Signs Temp Pulse Resp BP Pulse Ox 97.2 F 68 12 115/54 93 01/02/20 06:58 01/02/20 04:54 01/02/20 06:58 01/02/20 06:58 01/02/20 06:58 Period Temp Pulse Resp BP Sys/Aranda Pulse Ox Last 24 Hr 96.8 F-98.4 F 65-82 - 109-134/47-65 92-94 Intake and Output 01/01/20 01/02/20 01/02/20 21:59 05:59 13:59 Intake Total 600 0 Output Total 600 750 Balance 0 -750 Weight 74.871 kg Intake & Output: Intake & Output 01/01/20 01/02/20 01/02/20 21:59 05:59 13:59 Intake Total 600 0 Output Total 600 750 Balance 0 -750 Weight 74.871 kg Intake: Oral 600 0 Output: Void Amount 600 750 Other: Meal Dinner Percent of Meal Consumed 100% Urine Appearance Clear Urine Color Bright Yellow Bright Yellow Urine Odor Normal Normal Exam: General: Alert, Awake, No acute Distress Eyes/N/T: EOMI, Head/Neck: neck supple, CV: regular at this time, No murmurs, Pulm:mild rhonchi/rales R>L improving, no wheezing Abd: soft, nontender, +BS x4 Ext: no clubbing/cyanosis/edema Neuro: Alert, no focal deficits, moves all extremities, Skin: warm/dry OBJ DATA Labs CBC & Chem 7: 12/30/19 05:14 12/30/19 05:14 Labs: Abnormal Lab Results 12/30/19 05:14 Carbon Dioxide 21 L Glucose 183 H Albumin 2.9 L Globulin 3.8 H Albumin/Globulin Ratio 0.8 L Meds: Medications Acetaminophen (Tylenol) 650 mg PO Q6HP PRN PRN Reason: PAIN/FEVER > 101 Albuterol Sulfate (Ventolin) 1 puff INH Q4-6HP PRN PRN Reason: Shortness Of Breath Albuterol/Ipratropium (Duoneb) 3 ml NEB Q4HP PRN PRN Reason: Shortness Of Breath Apixaban (Eliquis) 5 mg PO BID [facility] Last Admin: 01/01/20 19:37 Dose: 5 mg Documented by: Ascorbic Acid (Vitamin C) 1,000 mg PO DAILY [facility] Last Admin: 01/01/20 07:43 Dose: 1,000 mg Documented by: Aspirin (Aspirin) 81 mg PO DAILY [facility] Last Admin: 01/01/20 07:43 Dose: 81 mg Documented by: Atorvastatin Calcium (Lipitor) 40 mg PO DAILY [facility] Last Admin: 01/01/20 07:43 Dose: 40 mg Documented by: Dexamethasone (Decadron) 6 mg PO DAILY [facility] Last Admin: 01/01/20 07:43 Dose: 6 mg Documented by: Dextrose (Dextrose 50%) 0 ml IV UD PRN PRN Reason: Hypoglycemia Diagnostic Test (Pha) (Accu-Chek) 1 each FS Q4 [facility] Last Admin: 01/02/20 04:01 Dose: 1 each Documented by: Docusate Sodium (Colace) 100 mg PO BID [facility] Last Admin: 01/01/20 19:37 Dose: 100 mg Documented by: Ergocalciferol (Drisdol) 50,000 unit PO WEEKLY [facility] Glucose (Insta-Glucose) 15 gm PO PRN PRN PRN Reason: Hypoglycemia Potassium Chloride 40 meq/ (Dextrose) 520 mls @ 130 mls/hr IV UD PRN PRN Reason: Potassium < 3 Magnesium Sulfate (Magnesium Sulfate) 2 gm in 50 mls @ 50 mls/hr IV UD PRN PRN Reason: Magnesium </= 1.6 Insulin Glargine (Lantus) 20 unit SQ DAILY [facility] Last Admin: 01/01/20 07:44 Dose: 20 unit Documented by: Insulin Human Lispro (Humalog) 0 unit SQ Q4 [facility]; Protocol Last Admin: 01/02/20 04:38 Dose: 2 unit Documented by: Metoprolol Tartrate (Lopressor) 5 mg IV Q2HP PRN PRN Reason: Tachyarrhythmias HR>110 Metoprolol Tartrate (Lopressor) 25 mg PO BID [facility] Last Admin: 01/01/20 19:37 Dose: 25 mg Documented by: Nitroglycerin (Nitrostat) 0.4 mg SL Q5M PRN PRN Reason: Chest Pain Ondansetron HCl (Zofran) 4 mg IV Q4HP PRN PRN Reason: Nausea And Vomiting Potassium Chloride (Kdur) 40 meq PO UD PRN PRN Reason: Potssium is 3-3.5 Potassium Chloride (Kdur) 40 meq PO UD PRN PRN Reason: Potassium < 3 Senna (Senokot) 2 tab PO DAILYP PRN PRN Reason: Constipation Last Admin: 01/01/20 19:37 Dose: 2 tab Documented by: Sodium Chloride (Saline Flush) 10 ml IV Q8 [facility] Last Admin: 01/02/20 04:01 Dose: 10 ml Documented by: Thiamine HCl (Vitamin B1) 100 mg PO DAILY [facility] Last Admin: 01/01/20 07:43 Dose: 100 mg Documented by: Vitamin D (Vitamin D3) 2,000 unit PO DAILY [facility] Last Admin: 01/01/20 07:43 Dose: 2,000 unit Documented by: Zinc Sulfate (Zinc) 50 mg PO DAILY [facility] Last Admin: 01/01/20 07:43 Dose: 50 mg Documented by: A/P Narrative A/P Narrative: A: *COVID PNA: *Acute hypoxic respiratory failure: -on 1L NC *AFib RVR: converted -trop neg -echo EF 55-60, TSH wnl *Hyponatremia: resolved *volume depletion: resolved *CAD with history of CABG: *HTN/HLD: *DM: A1c 8.4 P: -completed remdesivir, cont dexamethasone -IS, monitor O2 and wean as able -daily prone positioning -cont BB -discontinued lisinopril 5mg daily and decreased metoprolol to 25mg bid due to soft BP sometimes -cont ASA/Statin -basal and SSI -pt/ot -CM for placement -ppx: 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
[2020-01-02] MEDS ORDERED: INSULIN GLARGINE, HUMAN 1 UNIT/0.01 ML SQ SCH (09:00)
[2020-01-02] MEDS: ASPIRIN 81 MG TAB.CHEW PO SCH (11:14)
[2020-01-02] MEDS: DOCUSATE SODIUM 100 MG CAPSULE PO SCH ×2 (11:14→20:24)
[2020-01-02] MEDS: ZINC SULFATE 50 MG CAPSULE PO SCH (11:14)
[2020-01-02] MEDS: ATORVASTATIN 40 MG TABLET PO SCH (11:15)
[2020-01-02] MEDS: METOPROLOL TARTRATE 25 MG TABLET PO SCH ×2 (11:15→20:24)
[2020-01-02] MEDS: VITAMIN D3 1,000 UNIT TABLET PO SCH (11:16)
[2020-01-02] MEDS: THIAMINE 100 MG TABLET PO SCH (11:16)
[2020-01-02] MEDS: DEXAMETHASONE 4 MG TABLET PO SCH (11:16)
[2020-01-02] MEDS: ASCORBIC ACID 500 MG TABLET PO SCH (11:16)
[2020-01-02] MEDS: INSULIN GLARGINE, HUMAN 1 UNIT/0.01 ML SQ SCH (11:17)
[2020-01-02] MEDS: APIXABAN 5 MG TABLET PO SCH ×2 (11:17→20:24)
[2020-01-03] MEDS: INSULIN LISPRO 1 UNIT/0.01 ML UNIT SQ SCH ×3 (03:18→13:50)
[2020-01-03] MEDS: 0.9 % SODIUM CHLORIDE 10 ML SYRINGE IV SCH ×2 (06:23→14:12)
[2020-01-03] MEDS: ASCORBIC ACID 500 MG TABLET PO SCH (09:05)
[2020-01-03] MEDS: ZINC SULFATE 50 MG CAPSULE PO SCH (09:05)
[2020-01-03] MEDS: METOPROLOL TARTRATE 25 MG TABLET PO SCH (09:05)
[2020-01-03] MEDS: THIAMINE 100 MG TABLET PO SCH (09:05)
[2020-01-03] MEDS: ASPIRIN 81 MG TAB.CHEW PO SCH (09:05)
[2020-01-03] MEDS: VITAMIN D3 1,000 UNIT TABLET PO SCH (09:05)
[2020-01-03] MEDS: APIXABAN 5 MG TABLET PO SCH (09:06)
[2020-01-03] MEDS: ATORVASTATIN 40 MG TABLET PO SCH (09:06)
[2020-01-03] MEDS: DOCUSATE SODIUM 100 MG CAPSULE PO SCH (09:06)
[2020-01-03] MEDS: INSULIN GLARGINE, HUMAN 1 UNIT/0.01 ML SQ SCH (12:53)
[2020-01-03] MEDS ORDERED: FLU VACC QS2020-21(6MOS UP)/PF 60 MCG/0.5 ML SYRINGE IM ONE (13:45)
[2020-01-03] MEDS ORDERED: PNEUMOCOCCAL 23-VAL P-SAC VAC 0.5 ML SYRINGE IM ONE (13:45)
== END 2020-01-03 13:58 | disposition home or self-care (01) | DRG 177 ==
LOC: ED 09:03 → ICU 12:15 → MEDSUR 12-28 14:25
PROVIDERS: ADMIT Internal Medicine; ATTEND Internal Medicine

== ENCOUNTER 2024-03-16 11:37 | Inpatient (IN) ==
[2024-03-16] MEDS ORDERED: IOPAMIDOL 100 ML BOTTLE IV ONE (11:38)
[2024-03-16 12:22] LABS: Basophils # (Auto) 0.03 K/mcL (0.00-0.30); Basophils % (Auto) 0.3 % (0.0-2.0); Eosinophils # (Auto) 0.25 K/mcL (0.00-0.70); Eosinophils % (Auto) 2.9 % (0.0-7.0); Hematocrit 36.4 % (40.1-51.0); Hemoglobin 11.6 g/dL (13.7-17.5); Lymphocytes # (Auto) 1.74 K/mcL (1.50-4.80); Lymphocytes % (Auto) 19.9 % (15.5-49.0); Mean Cell Volume 94.3 fL (80.0-100.0); Mean Corpuscular HGB Conc 31.9 g/dL (31.0-36.0); Mean Platelet Volume 9.1 fL (8.8-12.5); Monocytes # (Auto) 0.69 K/mcL (0.10-0.90); Monocytes % (Auto) 7.9 % (1.0-12.0); Neutrophils % (Auto) 68.4 % (38.0-78.0); Platelet Count 227 K/mcL (140-440); RBC 3.86 M/mcL (4.63-6.08); Red Cell Distribution Width 13.6 % (11.5-14.5); WBC 8.7 K/mcL (4.5-11.0)
[2024-03-16] MEDS: IPRATROPIUM/ALBUTEROL 3 ML AMPUL.NEB NEB ONE (12:30)
[2024-03-16 12:38] LABS: Blood Urea Nitrogen 29 mg/dL (8-23); Calcium 9.4 mg/dL (8.6-10.4); Carbon Dioxide 18 mmol/L (22-30); Chloride 105 mmol/L (96-108); Glomerular Filtration Rate 49; Glucose 178 mg/dL (70-105); Potassium 4.7 mmol/L (3.3-5.1); Sodium 137 mmol/L (133-145)
[2024-03-16] MEDS: ASPIRIN 81 MG TAB.CHEW CHEWED ONE (12:56)
[2024-03-16] MEDS: FUROSEMIDE 40 MG/4 ML VIAL IV ONE (14:00)
[2024-03-16] MEDS ORDERED: NITROGLYCERIN 0.4 MG TAB.SUBL SL PRN (17:37)
[2024-03-16] MEDS ORDERED: SENNOSIDES 1 TABLET PO PRN (17:37)
[2024-03-16] MEDS ORDERED: ONDANSETRON 4 MG/2 ML VIAL IV PRN (17:37)
[2024-03-16] MEDS ORDERED: DEXTROSE 50% 50 ML VIAL IV PRN (17:37)
[2024-03-16] MEDS ORDERED: METOPROLOL TARTRATE 5 MG/5 ML VIAL IV PRN (17:37)
[2024-03-16] MEDS ORDERED: METOCLOPRAMIDE 10 MG/2 ML VIAL IV PRN (17:37)
[2024-03-16] MEDS ORDERED: DEXTROSE 31 GM ORAL.SUSP PO PRN (17:37)
[2024-03-16] MEDS ORDERED: POTASSIUM CHLORIDE 40 MEQ in DEXTROSE 5% IN WATER 500 ML IV PRN (17:37)
[2024-03-16] MEDS ORDERED: IPRATROPIUM/ALBUTEROL 3 ML AMPUL.NEB NEB PRN (17:37)
[2024-03-16] MEDS ORDERED: POTASSIUM CHLORIDE 20 MEQ TABLET PO PRN ×2 (17:37)
[2024-03-16] MEDS ORDERED: POLYETHYLENE GLYCOL 3350 17 GM PACKET PO PRN (17:37)
[2024-03-16] MEDS: INSULIN LISPRO 1 UNIT/0.01 ML UNIT SQ SCH (17:57)
[2024-03-16] MEDS: NITROGLYCERIN 5 MG (0.2 MG/HR) PATCH TOPICAL ONE (19:35)
[2024-03-16] MEDS: DOCUSATE SODIUM 100 MG CAPSULE PO SCH (20:39)
[2024-03-16] MEDS: CLOPIDOGREL 75 MG TABLET PO SCH (20:39)
[2024-03-17 06:52] LABS: ALT/SGPT 16 U/L (<40); AST/SGOT 24 U/L (<40); Albumin 3.7 gm/dL (3.2-5.2); Albumin/Globulin Ratio 1.3 (1.0-2.3); Alkaline Phosphatase 85 U/L (39-117); Bilirubin,Direct 0.6 mg/dL (<0.3); Bilirubin,Total 1.4 mg/dL (0.1-1.0); Blood Urea Nitrogen 27 mg/dL (8-23); Calcium 9.2 mg/dL (8.6-10.4); Carbon Dioxide 18 mmol/L (22-30); Chloride 105 mmol/L (96-108); Globulin 2.9 gm/dL (2.2-3.7); Glomerular Filtration Rate 60; Glucose 75 mg/dL (70-105); Lactate Dehydrogenase 179 U/L (135-225); Phosphorous 3.6 mg/dL (2.5-4.5); Potassium 4.1 mmol/L (3.3-5.1); Sodium 139 mmol/L (133-145); Triglycerides 80 mg/dL (<150); Uric Acid 7.7 mg/dL (2.5-8.0)
[2024-03-17] MEDS: ENOXAPARIN 40 MG/0.4 ML SYRINGE SQ SCH (08:41)
[2024-03-17] MEDS: INSULIN GLARGINE, HUMAN 1 UNIT/0.01 ML SQ SCH (08:41)
[2024-03-17] MEDS: METOPROLOL TARTRATE 50 MG TABLET PO SCH (08:42)
[2024-03-17] MEDS: ASPIRIN 81 MG TAB.CHEW CHEWED SCH (08:42)
[2024-03-17] MEDS: FUROSEMIDE 100 MG/10 ML VIAL IV SCH (08:42)
[2024-03-17] MEDS: ATORVASTATIN 20 MG TABLET PO SCH (08:42)
[2024-03-17] MEDS: SODIUM BICARBONATE 650 MG TABLET PO ONE (10:18)
[2024-03-17] MEDS: 0.9 % SODIUM CHLORIDE 10 ML SYRINGE IV SCH (20:51)
[2024-03-17] MEDS ORDERED: HYDROcodone/APAP 5/325MG TABLET PO PRN (22:08)
[2024-03-17] MEDS: morphine 2 MG/ML VIAL IV PRN (22:16)
[2024-03-17] MEDS: morphine 2 MG/ML VIAL ONE (22:25)
[2024-03-18 08:28] LABS: ALT/SGPT 17 U/L (<40); AST/SGOT 27 U/L (<40); Albumin 4.2 gm/dL (3.2-5.2); Albumin/Globulin Ratio 1.2 (1.0-2.3); Alkaline Phosphatase 100 U/L (39-117); Bilirubin,Direct 0.8 mg/dL (<0.3); Bilirubin,Total 1.8 mg/dL (0.1-1.0); Blood Urea Nitrogen 31 mg/dL (8-23); Calcium 9.8 mg/dL (8.6-10.4); Carbon Dioxide 23 mmol/L (22-30); Chloride 98 mmol/L (96-108); Globulin 3.6 gm/dL (2.2-3.7); Glomerular Filtration Rate 49; Glucose 125 mg/dL (70-105); Lactate Dehydrogenase 188 U/L (135-225); Phosphorous 4.1 mg/dL (2.5-4.5); Potassium 4.2 mmol/L (3.3-5.1); Sodium 136 mmol/L (133-145); Triglycerides 96 mg/dL (<150); Uric Acid 8.9 mg/dL (2.5-8.0)
[2024-03-18] MEDS: MAGNESIUM SULFATE 2 GM/50 ML BAG IV PRN (09:07)
[2024-03-18] MEDS: MAGNESIUM SULFATE 2 GM/50 ML BAG IV ONE (09:08)
[2024-03-18] MEDS: METOPROLOL TARTRATE 50 MG TABLET PO SCH (10:05)
[2024-03-18 15:09] VITALS: TEMP 97.4; O2SAT 92
== END 2024-03-18 15:56 | disposition home or self-care (01) | DRG 302 ==
LOC: ED 11:37 → ICU 17:25
PROVIDERS: ADMIT Internal Medicine; ATTEND Internal Medicine